=== PATIENT | female | born 1975 | race Caucasian/White ===

== ENCOUNTER 2021-07-03 08:26 | Emergency (ER) | payer MEDICARE, MEDICAID, SELFPAY ==
[2021-07-03 08:30] VITALS: BP 127/96; PULSE 79; RESP 16; TEMP 36.4; O2SAT 97
--- NOTE | 2021-07-03 08:49 | ED.GENADULT ---
HPI - General Adult General Chief complaint: Unspecified Stated complaint: SWOLLEN LYMPH NODES Time Seen by Provider: 07/03/21 08:49 Source: patient Mode of arrival: ambulatory Limitations: no limitations History of Present Illness HPI narrative: 46-year-old woman with a history of seasonal allergies comes in today complaining of facial pressure, fever, chills, facial swelling and swollen lymph nodes. She denies shortness of breath, vomiting, difficulty swallowing, difficulty breathing, and throat swelling. She has had similar symptoms in the past which were responsive to Augmentin (which she tolerated without difficulty). She states that her facial swelling became worse after she sneezed really hard 2 days ago. Onset (ago): day(s) (3) Location: head, face and neck Radiation: non-radiation Severity: moderate Quality: aching Pain Consistency: constant Relieving factors: none Exacerbating factors: none Associated symptoms: cough and fever/chills Treatments prior to arrival: other ( Antihistamines) Related Data Home Medications Medication Instructions Recorded Confirmed duloxetine 60 mg PO BID 07/03/21 07/03/21 liothyronine 25 mcg PO DAILY 07/03/21 07/03/21 lisinopril 10 mg PO DAILY 07/03/21 07/03/21 metformin 500 mg PO DAILY 07/03/21 07/03/21 norethindrone acetate 5 mg PO DAILY 07/03/21 07/03/21 pregabalin 150 mg PO BID 07/03/21 07/03/21 sertraline 50 mg PO HS 07/03/21 07/03/21 trazodone 150 mg PO HS 07/03/21 07/03/21 Allergies Allergy/AdvReac Type Severity Reaction Status Date / Time ceftriaxone Allergy Severe Anaphylactic Verified 05/16/19 19:24 Shock Cephalosporins Allergy Mild Hives / Unverified 12/22/08 15:24 Red Face Penicillins Allergy Mild Muscle Unverified 12/22/08 15:24 Spasms Bee Venom Allergy Intermediate Dyspnea / Uncoded 05/16/19 19:24 SOB Sulfa Drugs Allergy Intermediate Other Uncoded 05/16/19 19:24 Wasp Venom Allergy Intermediate Dyspnea / Uncoded 05/16/19 19:24 SOB Review of Systems Review of Systems: All systems reviewed & are unremarkable except as noted in HPI and below Constitutional: Constitutional: Reports fatigue and Reports fever(s) Eyes: Eyes: Denies change in vision, Denies diplopia and Denies photophobia ENT: Denies otalgia, Reports facial pain, Denies lip swelling, Reports nasal congestion, Denies nasal discharge, Reports sinus pressure, Denies sore throat, Denies throat swelling and Denies tongue swelling Cardiovascular: Cardiovascular: Denies chest pain and Denies syncope Respiratory: Respiratory: Denies cough, Denies dyspnea, Denies stridor and Denies wheezing Gastrointestinal: Gastrointestinal: Denies abdominal pain, Denies diarrhea, Denies nausea and Denies vomiting Musculoskeletal: Musculoskeletal: Denies arthralgias, Denies joint swelling and Reports neck pain Integumentary/Breasts: Skin/Breast: Denies pruritus, Denies erythema and Denies rash Neurologic: Denies vertigo, Denies dizziness and Denies syncope Hematologic/Lymphatic: Hematologic/Lymphatic: Denies easy bleeding and Denies easy bruising Allergic/Immunologic: Allergic/Immunologic: Denies urticaria, Denies lip swelling and Denies throat swelling [facility] Past Medical History Medical History (Updated 07/03/21 @ 09:12 by Bjorn Gomez MD) Hypertension Hypothyroidism Type 2 diabetes mellitus Surgical History Surgical History (Updated 07/03/21 @ 09:06 by Bjorn Gomez MD) H/O knee surgery History of back surgery S/P gastric sleeve procedure Social History Social History (Updated 07/03/21 @ 09:06 by Bjorn Gomez MD) Smoking status: Current every day smoker Living arrangements: with family Exam Const: General: cooperative, alert, awake, Physically active and other ( mild acute distress.) Nutritional Appearance: overweight Orientation/consciousness: patient oriented x3 Limitations: no limitations HENMT: Head: normal to inspection, normocephalic and a
[2021-07-03 09:55] LABS: SARS-CoV-2 Ag Negative (Negative)
[2021-07-03 09:58] VITALS: BP 133/85; PULSE 75; RESP 16; O2SAT 97
== END 2021-07-03 10:05 | disposition home or self-care (01) ==
PROVIDERS: Emergency Provider Emergency Medicine; PCP Nurse Practitioner
DX: J32.9 Chronic sinusitis, unspecified (principal); Z20.822 Contact with and (suspected) exposure to COVID-19
CPT/HCPCS: 87426; 99283; C9803

== ENCOUNTER 2021-09-12 12:41 | Emergency (ER) | payer MEDICARE, MEDICAID, SELFPAY ==
[2021-09-12 13:10] VITALS: BP 134/88; PULSE 82; RESP 18; TEMP 36.2; O2SAT 98
--- NOTE | 2021-09-12 13:44 | ED.URI ---
HPI - URI/Sore Throat General Chief Complaint: Upper Respiratory Infection Stated Complaint: Sinus/headche congestion/breathing labored Source: patient, family and RN notes reviewed Mode of arrival: ambulatory Limitations: no limitations History of Present Illness MD elicited complaint: cough, sore throat, rhinorrhea and nasal congestion Onset (ago): day(s) (4) Consistency: intermittent and progressively worsening Severity: moderate Description of mucous: clear Able to tolerate fluids by mouth: Yes Exacerbating factors: nothing Relieving factors: nothing Context: sick contacts Associated symptoms: denies other symptoms Treatments prior to arrival: none Related Data Home Medications Medication Instructions Recorded Confirmed duloxetine 60 mg PO BID 07/03/21 09/12/21 liothyronine 25 mcg PO DAILY 07/03/21 09/12/21 norethindrone acetate 5 mg PO DAILY 07/03/21 09/12/21 pregabalin 150 mg PO BID 07/03/21 09/12/21 sertraline 50 mg PO HS 07/03/21 09/12/21 trazodone 150 mg PO HS 07/03/21 09/12/21 Allergies Allergy/AdvReac Type Severity Reaction Status Date / Time ceftriaxone Allergy Severe Anaphylactic Verified 09/12/21 13:18 Shock Cephalosporins Allergy Mild Hives / Verified 09/12/21 13:18 Red Face Penicillins Allergy Mild Muscle Verified 09/12/21 13:18 Spasms Bee Venom Allergy Intermediate Dyspnea / Uncoded 05/16/19 19:24 SOB Sulfa Drugs Allergy Intermediate Other Uncoded 05/16/19 19:24 Wasp Venom Allergy Intermediate Dyspnea / Uncoded 05/16/19 19:24 SOB Review of Systems Review of Systems: All systems reviewed & are unremarkable except as noted in HPI and below Constitutional: Constitutional: Denies chills and Denies fever(s) Cardiovascular: Cardiovascular: Denies chest pain Respiratory: Respiratory: Denies dyspnea Gastrointestinal: Gastrointestinal: Denies diarrhea, Denies nausea and Denies vomiting PMFSH Past Medical History Medical History Hypertension Hypothyroidism Type 2 diabetes mellitus Surgical History Surgical History H/O knee surgery History of back surgery S/P gastric sleeve procedure Social History Social History Smoking status: Current every day smoker Exam Const: General: healthy appearing, no acute distress and alert Nutritional Appearance: well nourished and obese morbidly obese Orientation/consciousness: patient oriented x3 HENMT: Head: normal to inspection Ears: external ears normal Eyes: Conjunctivae: conjunctivae normal Pupils: Equal, round and reactive pupils present EOM: EOMs intact bilaterally Neck: Neck: normal visual inspection and no lymphadenopathy Resp: Effort & Inspection: normal respiratory effort Auscultation: clear to auscultation bilaterally Cardio: Rate: regular rate Rhythm: regular rhythm GI: GI Palp: Yes Soft to palpation and No Tenderness to palpation present (GI) Auscultation: normal bowel sounds Back/Spine/Pelvis: Cervical Spine: cervical ROM normal Thoracic/Lumbar Spine: thoraco-lumbar ROM normal Skin: General skin exam: normal color Rashes: no rashes Neuro: General: patient oriented x3, moves all extremities, no meningeal signs, no focal motor deficits and CN's II-XI intact bilaterally Speech: normal speech Gait exam (Neuro): Normal gait present Extrem: General: normal to inspection and no clubbing, cyanosis or edema Psych: Appearance: grossly normal and well kempt Mental Status: mental status grossly normal Affect: normal affect Attitude: cooperative Thought content: Yes Normal thought content present Course Vital Signs Vital signs: Vital Signs Temperature 36.2 C L 09/12/21 13:10 Pulse Rate 82 09/12/21 13:10 Respiratory Rate 18 09/12/21 13:10 Blood Pressure 134/88 09/12/21 13:10 Pulse Oximetry 98 09/12/21 13:10 Temperature 3
[2021-09-12 14:07] LABS: Influenza A QL RT-PCR Negative (Negative); Influenza B QL RT-PCR Negative (Negative); SARS-CoV-2 RNA PCR Negative (Negative)
[2021-09-12 14:50] VITALS: BP 112/92; PULSE 101; RESP 16; O2SAT 95
== END 2021-09-12 14:50 | disposition home or self-care (01) ==
PROVIDERS: Emergency Provider Emergency Medicine; PCP Nurse Practitioner
DX: J00 Acute nasopharyngitis [common cold] (principal); Z20.822 Contact with and (suspected) exposure to COVID-19; I10 Essential (primary) hypertension; E03.9 Hypothyroidism, unspecified; E11.9 Type 2 diabetes mellitus without complications; F17.200 Nicotine dependence, unspecified, uncomplicated
CPT/HCPCS: 87502; 99282; 99283; C9803; U0003; U0005

== ENCOUNTER 2021-10-09 08:26 | Outpatient (CLI) | payer MEDICARE, MEDICAID, SELFPAY ==
[2021-10-09 08:51] LABS: Basophils Absolute Auto 0.08 K/mm3 (0.00-0.10); Basophils Percent Auto 0.6 % (0.0-1.0); Eosinophils Absolute Auto 0.26 K/mm3 (0.02-0.50); Hematocrit 44.5 % (35.0-49.0); Hemoglobin 14.6 g/dL (12.0-15.0); Immature Granulocyte Absolute 0.05 K/mm3 (0.00-0.00); Immature Granulocyte Percent A 0.4 % (0.0-0.0); Lymphocytes Absolute Auto 2.59 K/mm3 (1.10-4.50); Mean Corpuscular HGB Conc 32.8 g/dL (32.0-36.0); Mean Corpuscular Hemoglobin 28.1 pg (27.0-31.0); Mean Corpuscular Volume 85.7 fL (78.0-102.0); Mean Platelet Volume 10.1 fl (9.2-11.8); Monocytes Absolute Auto 0.59 K/mm3 (0.10-0.90); Monocytes Percent Auto 4.6 % (2.0-11.0); Neutrophils Absolute Auto 9.4 K/mm3 (1.7-7.2); Neutrophils Percent Auto 72.4 % (50.0-70.0); Platelet Count Result 394 K/mm3 (150-420); Red Blood Count 5.19 M/mm3 (4.20-5.40); Red Cell Distribution Width 14.4 % (11.6-14.4); White Blood Count 12.9 K/mm3 (4.8-10.8)
[2021-10-09 10:24] LABS: Erythrocyte Sedimentation Rate 30 mm/hr (0-15)
[2021-10-09 10:52] LABS: Ferritin 175 ng/mL (8-252); Iron 86 ug/dL (50-170); Percent Iron Saturation 32 % (12-57); Vitamin B12 497 pg/mL (193-986)
== END 2021-10-09 08:27 | disposition home or self-care (01) ==
LOC: CHSLAB 08:34
PROVIDERS: PCP Nurse Practitioner; Visit Provider Internal Medicine
DX: D47.3 Essential (hemorrhagic) thrombocythemia (principal); D72.823 Leukemoid reaction
CPT/HCPCS: 36415; 82607; 82728; 83540; 83550; 85025; 85652

== ENCOUNTER 2022-12-12 10:26 | Emergency (ER) | payer MEDICARE, MEDICAID, SELFPAY ==
--- NOTE | ~2022-12-12 | XR_ITS ---
EXAMINATION: [id number] DATE: 12/12/2022 11:01 INDICATION: Right anterior rib pain. TECHNIQUE: A frontal view of the chest and 2 views on 3 radiographs of the right ribs were obtained. COMPARISON: CT abdomen and pelvis 09/15/19 FINDINGS: The chest demonstrates clear lungs without pneumonia, pleural effusion, or pneumothorax. Th e heart size is normal. There are changes of anterior and posterior fusion procedures in lumbar spine . There is a fracture of right seventh rib. IMPRESSION: 1. Fracture of right seventh rib. Reviewed, dictated and finalized at location A.
[2022-12-12 10:36] VITALS: BP 138/89; PULSE 79; RESP 18; TEMP 36.8; O2SAT 100
--- NOTE | 2022-12-12 10:37 | ED.CHESTPAIN ---
HPI - Chest Pain General Chief Complaint: Unspecified Stated Complaint: right rib pain Time Seen by Provider: 12/12/22 10:36 Source: patient Mode of arrival: ambulatory Limitations: no limitations History of Present Illness HPI narrative: 47-year-old female with a history of hypertension, prediabetic, negative cardiac catheterization 2 months ago,, hypothyroidism, status post gastric sleeve, status post back surgery, status post knee surgery was leaning against a cooler at [employer] 2 days ago and heard crepitus in the right lower chest wall. Subsequently she has been having right lower chest wall pain on deep breathing. No fever. No cough. No sputum production. MD complaint: chest pain Onset (ago): day(s) ( Started 2 days ago) Timing of current episode: constant Prior episodes: No Pain location: other ( right lateral chest wall) Pain radiation: none Severity: moderate Quality: sharp Relieving factors: nothing Exacerbating factors: inspiration Treatment prior to arrival: none Risk Factors Coronary artery disease risk factors: diabetes and smoking history Thoracic aortic dissection risk factors: none Pulmonary embolism risk factors: oral contracepetive use Related Data On Oral Contraceptives: Yes Home Medications Medication Instructions Recorded Confirmed duloxetine 60 mg capsule,delayed 60 mg PO BID 07/03/21 09/12/21 release liothyronine 25 mcg tablet 25 mcg PO DAILY 07/03/21 09/12/21 norethindrone acetate 5 mg tablet 5 mg PO DAILY 07/03/21 09/12/21 pregabalin 150 mg capsule 150 mg PO BID 07/03/21 09/12/21 sertraline 50 mg tablet 50 mg PO HS 07/03/21 09/12/21 trazodone 150 mg tablet 150 mg PO HS 07/03/21 09/12/21 Allergies Allergy/AdvReac Type Severity Reaction Status Date / Time ceftriaxone Allergy Severe Anaphylactic Verified 12/12/22 10:34 Shock Cephalosporins Allergy Mild Hives / Verified 12/12/22 10:34 Red Face Penicillins Allergy Mild Muscle Verified 12/12/22 10:34 Spasms Bee Venom Allergy Intermediate Dyspnea / Uncoded 12/12/22 10:34 SOB Sulfa Drugs Allergy Intermediate Other Uncoded 12/12/22 10:34 Wasp Venom Allergy Intermediate Dyspnea / Uncoded 12/12/22 10:34 SOB Review of Systems Review of Systems: All systems reviewed & are unremarkable except as noted in HPI and below Constitutional: Constitutional: Reports as per HPI and Reports no additional constitutional complaints Eyes: Eyes: Reports as per HPI and Reports no additional eye complaints ENT: Reports system reviewed and no additional complaints, except as documented and Reports as per HPI Cardiovascular: Cardiovascular: Reports as per HPI and Reports no additional cardiovascular complaints Respiratory: Respiratory: Reports as per HPI and Reports no additional respiratory complaints Comments: right lateral chest wall pain Gastrointestinal: Gastrointestinal: Reports as per HPI and Reports no additional gastrointestinal complaints Genitourinary: Genitourinary: Reports no additional female genitourinary complaints and Reports as per HPI Musculoskeletal: Musculoskeletal: Reports no additional musculoskeletal complaints and Reports as per HPI Integumentary/Breasts: Skin/Breast: Reports system reviewed and no additional complaints, except as docu and Reports as per HPI Neurologic: Reports system reviewed and no additional complaints, except as documented and Reports as per HPI Psychiatric: Psychiatric: Reports no additional psychiatric complaints and Reports as per HPI Endocrine: Endocrine: Reports no additional endocrine complaints and Reports as per HPI Hematologic/Lymphatic: Hematologic/Lymphatic: Reports no additional hematologic/lymphatic complaints and Reports as per HPI Allergic/Immunologic: Allergic/Immunologic: Reports no additional allergic/immunologic complaints and Reports as per HPI [facility] Past Medical History Medical History (Updated 12/12/22 @ 11:44 by Mehdi Mendoza MD) Hypertension Hyp
[2022-12-12 11:58] VITALS: BP 129/94; PULSE 65; RESP 18; O2SAT 99
--- NOTE | 2022-12-12 11:59 | PC.NURSE ---
Having difficulty printing discharge packet. Pt aware of delay and verbalized understanding. Pt resting comfortably on bed, talking on phone.
== END 2022-12-12 12:24 | disposition home or self-care (01) ==
PROVIDERS: Emergency Provider Internal Medicine Critical Care Medicine; PCP Family Medicine
DX: S22.31XA Fracture of one rib, right side, initial encounter for closed fracture (principal); I10 Essential (primary) hypertension; E03.9 Hypothyroidism, unspecified; F17.200 Nicotine dependence, unspecified, uncomplicated; X58.XXXA Exposure to other specified factors, initial encounter
CPT/HCPCS: 71101; 99283

== ENCOUNTER 2023-01-02 08:07 | Emergency (ER) | payer MEDICARE, MEDICAID, SELFPAY ==
--- NOTE | ~2023-01-02 | XR_ITS ---
EXAMINATION: [id number] INDICATION: Right chest pain TECHNIQUE: A frontal view of the chest and 3 views of the right ribs were obtained. COMPARISON: 12/12/2022 FINDINGS: The lungs are free of acute opacities. No pleural effusion or pneumothorax. The cardiomedia stinal silhouette is normal. A healing fracture of the right seventh rib is noted. No new rib fractur e is identified. IMPRESSION: 1. No acute cardiopulmonary abnormality. 2. Healing right seventh rib fracture. Reviewed, dictated and finalized at location B.
[2023-01-02 08:07] VITALS: BP 125/82; PULSE 86; RESP 16; TEMP 36.5; O2SAT 96
--- NOTE | 2023-01-02 08:10 | ED.CHESTPAIN ---
HPI - Chest Pain General Chief Complaint: Chest Pain Stated Complaint: rib pain Time Seen by Provider: 01/02/23 08:09 Source: patient Mode of arrival: ambulatory Limitations: no limitations History of Present Illness HPI narrative: 47-year-old female, smoker with a history of hypertension, prediabetes, hypothyroidism, right 7th rib fracture for which she was seen on 12/12/2022 presents to the ER with -- recurrence of right lower chest wall pain after she leaned over the research [employer] 4 days ago. Pain is present on palpation. It increases with deep breathing. No fever or chills. MD complaint: chest pain Pertinent past history: coronary artery disease ( Negative cardiac catheterization 3 months ago) Onset (ago): day(s) ( started 4 days ago) Timing of current episode: episodic Onset: during exertion Pain location: right chest and lateral Pain radiation: none Severity: severe Quality: sharp Relieving factors: nothing Exacerbating factors: nothing Treatment prior to arrival: none Risk Factors Coronary artery disease risk factors: smoking history and hypertension Thoracic aortic dissection risk factors: longstanding hypertension Related Data Home Medications Medication Instructions Recorded Confirmed duloxetine 60 mg capsule,delayed 60 mg PO BID 07/03/21 01/02/23 release liothyronine 25 mcg tablet 25 mcg PO DAILY 07/03/21 01/02/23 norethindrone acetate 5 mg tablet 5 mg PO DAILY 07/03/21 01/02/23 pregabalin 150 mg capsule 150 mg PO BID 07/03/21 01/02/23 sertraline 50 mg tablet 50 mg PO HS 07/03/21 01/02/23 trazodone 150 mg tablet 150 mg PO HS 07/03/21 01/02/23 potassium chloride 10 mEq 10 meq PO DAILY 01/02/23 01/02/23 tablet,extended release Allergies Allergy/AdvReac Type Severity Reaction Status Date / Time ceftriaxone Allergy Severe Anaphylactic Verified 01/02/23 08:10 Shock Cephalosporins Allergy Mild Hives / Verified 01/02/23 08:10 Red Face Penicillins Allergy Mild Muscle Verified 01/02/23 08:10 Spasms Bee Venom Allergy Intermediate Dyspnea / Uncoded 12/12/22 10:34 SOB Sulfa Drugs Allergy Intermediate Other Uncoded 12/12/22 10:34 Wasp Venom Allergy Intermediate Dyspnea / Uncoded 12/12/22 10:34 SOB Review of Systems Review of Systems: All systems reviewed & are unremarkable except as noted in HPI and below Constitutional: Constitutional: Reports as per HPI and Reports no additional constitutional complaints Eyes: Eyes: Reports as per HPI and Reports no additional eye complaints ENT: Reports system reviewed and no additional complaints, except as documented and Reports as per HPI Cardiovascular: Cardiovascular: Reports as per HPI and Reports no additional cardiovascular complaints Respiratory: Respiratory: Reports as per HPI ( right lateral chest wall pain made worse by deep breathing) Gastrointestinal: Gastrointestinal: Reports as per HPI and Reports no additional gastrointestinal complaints Genitourinary: Genitourinary: Reports no additional female genitourinary complaints and Reports as per HPI Musculoskeletal: Musculoskeletal: Reports no additional musculoskeletal complaints and Reports as per HPI Integumentary/Breasts: Skin/Breast: Reports system reviewed and no additional complaints, except as docu and Reports as per HPI Neurologic: Reports system reviewed and no additional complaints, except as documented and Reports as per HPI Psychiatric: Psychiatric: Reports no additional psychiatric complaints and Reports as per HPI Endocrine: Endocrine: Reports no additional endocrine complaints and Reports as per HPI Hematologic/Lymphatic: Hematologic/Lymphatic: Reports no additional hematologic/lymphatic complaints and Reports as per HPI Allergic/Immunologic: Allergic/Immunologic: Reports no additional allergic/immunologic complaints and Reports as per HPI [facility] Past Medical History Medical History (Updated 01/02/23 @ 08:30 by Mehdi Mendoza MD) Hypertension Hypothyroidism
[2023-01-02] MEDS: KETOROLAC 30 MG/ML VIAL (*BKC) IM (08:30)
== END 2023-01-02 08:55 | disposition home or self-care (01) ==
LOC: CHSED 08:39
PROVIDERS: Emergency Provider Internal Medicine Critical Care Medicine; PCP Family Medicine
DX: R07.89 Other chest pain (principal); S22.31XD Fracture of one rib, right side, subsequent encounter for fracture with routine healing; I25.10 Atherosclerotic heart disease of native coronary artery without angina pectoris; I10 Essential (primary) hypertension; E03.9 Hypothyroidism, unspecified; F17.200 Nicotine dependence, unspecified, uncomplicated; X58.XXXD Exposure to other specified factors, subsequent encounter
CPT/HCPCS: 71101; 96372; 99283; J1885

== ENCOUNTER 2025-05-19 07:00 | Outpatient (RCR) | payer MEDICARE, SELFPAY ==
--- NOTE | 2025-05-19 09:05 | OPREHPOC ---
Outpatient Therapy Plan of Care This is a Multidisciplinary Plan of Care that may contain components documented by all disciplines (PT, OT, and ST.) PT Problem 1 PT Problem #1 Knowledge Deficit PT Goal 1 Goal / Goal Update Independent and compliant with HEP. Target Visit 2 PT Problem 2 PT Problem #2 Pain PT Goal 1 Goal / Goal Update Pt to report no more than 3/10 pain in the L knee at worst. Target Visit 12 PT Problem 3 PT Problem #3 Impaired Strength PT Goal 1 Goal / Goal Update Pt to improve gross bilat LE strength to 5/5. Target Visit 12 PT Problem 4 PT Problem #4 Impaired Functional Mobility PT Goal 1 Goal / Goal Update Pt to improve 6MWT distance to 1200 ft without rest or knee pain. Pt to report 20% reduction in perceived disability on LEFS. Pt to report being able to return to all daily functional activities at home and in the community . Target Visit 12 PT Problem 5 PT Problem #5 Impaired Range of Motion PT Goal 1 Goal / Goal Update Pt to improve active L knee flexion to 135 deg. Target Visit 12
--- NOTE | 2025-05-19 09:05 | PTOPEVAL1 ---
Assessment and note entered by Shasta Mabry, PT Evaluation Information Assessment Status Evaluation ICD-10 Condition Codes (PT) Aftercare following joint replacement surgery Z47. 1 Other ICD-10 Condition Codes ( Z96.652 PT) Onset 04/20/2025 Subjective Information Pt reports she had her knee replaced on 04/20/2025 and she feels like she has a whole new knee. She reports they gave her exercises which she has been doing and they also gave her a CPM machine but she hasn't used it, states the doctor said as long as she does her exercises she doesn't have to use it. She reports the first week after surgery her knee hurt a lot, but she used her ice machine frequently to help reduce pain. She reports she has a step to get into her house which she can ascend/descend without difficulty and that she was able to mow her lawn on the riding mower over the weekend. She initially used a walker for the first week after surgery but hasn't used it since. She reports little to no pain at rest but that her pain increases up to 5/10 when she sits, stands, or walks for too long. She reports her knee does swell when she's on her feet a lot but she feels like it's been getting less swollen. Reported Pain Level Pain Score 0: Self Report Assessment PT Clinical Summary Mrs. Harvey is a 50 yo female presenting for skilled PT evaluation s/p L TKA on 04/20/2025. She presents with mild deficits in lower extremity strength, moderate limitation in L knee flexion AROM, pain with prolonged positioning and ambulation, stiffness and edema. These deficits interfere with pt's ability to sit and stand for prolonged periods, squat to lift objects, and perform her usual hobbies. Skilled PT intervention is indicated to address these deficits to improve pt's ability to perform daily functional tasks at home and in her community. Plan of Care Interventions Electrical Stimulation,Gait Training,Hot Pack/Cold Pack,Manual Therapy,Neuro Re-education,Patient/ Caregiver Education,Therapeutic Activities, Therapeutic Exercise,Self-Care/Home Management PT Services Indicated Yes Treatment Frequency and 2x/week for 12 visits Duration These treatments will address the objective and functional deficits as defined above. The patient will be advanced safely and appropriately in order for the patient to progress towards his/her prior level of function. Additional exercises will be introduced and as well as a comprehensive home exercise program upon discharge, if needed, ?to ensure carryover of functional gains achieved in the clinic. This treatment plan has been reviewed and agreement upon by the patient.
--- NOTE | 2025-05-27 07:17 | PCPTNOTE ---
Cancelled session. Reports she has strep throat.
--- NOTE | 2025-06-18 11:25 | PCPTNOTE ---
No call, no show.
== END 2025-08-17 23:59 | disposition home or self-care (01) ==
LOC: CHSPT 07:00
PROVIDERS: Visit Provider Orthopaedic Surgery
DX: Z47.1 Aftercare following joint replacement surgery (principal); Z96.652 Presence of left artificial knee joint
CPT/HCPCS: 97016; 97110; 97150; 97161; 97530

== ENCOUNTER 2025-05-27 10:32 | Emergency (ER) | payer MEDICARE, SELFPAY ==
[2025-05-27 10:42] VITALS: BP 136/83; PULSE 92; RESP 16; TEMP 36.8; O2SAT 98
[2025-05-27 11:07] LABS: Strep Group A RT-PCR DETECTED (Negative)
--- OUTSIDE RECORDS SUMMARY | 2025-05-27 11:09 | XMS_ITS | Clinical Summary ---
Author Organization [facility] Address [address] [place] [address] Care Team Providers Care Ward Attendant Name Role Phone Fadi Plaza MD Primary Care Provider [phone] Benjy Hernandez MD Unavailable [phone] Earl Guerra OT Unavailable Unavailable Cayden Chua MD Unavailable [phone] Allergies Active Allergy Reactions Criticality Noted Date Comments Venom-Honey Bee Swelling Medium 11/09/2019 Penicillins Muscle pain Medium 09/12/2021 Ceftriaxone Hives Medium 11/09/2019 Sulfa (Sulfonamide Antibiotics) Other (See comments) High 06/04/2017 Messes up my kidneys Wasp Venom Swelling Medium 11/09/2019 Medications albuterol HFA (PROVENTIL HFA,VENTOLIN HFA,PROAIR HFA) 90 mcg/actuation inhaler Inhale 3-4 puffs 4 (four) times a day Active docusate sodium (COLACE) 100 mg capsule Take 1 capsule (100 mg total) by mouth 2 (two) times a day 020 Active loratadine-pseudo ephedrine (CLARITIN-D 24-hour) 10-240 mg per 24 hr tablet Take 1 tablet by mouth daily as needed for allergies 30 tablet 3 022 Active fluticasone propionate (FLONASE) 50 mcg/actuation nasal spray Administer 2 sprays into each nostril 2 (two) times a day 1 each 1 023 Active ARIPiprazole (ABILIFY) 5 mg tablet Take 1 tablet (5 mg total) by mouth daily 90 tablet 1 024 Active potassium chloride ER 20 mEq CR tabletIndications :Hypokalemia Take 1 tablet (20 mEq total) by mouth 3 (three) times a day 270 tablet 1 024 Active traZODone (DESYREL) 150 mg tablet Take 1 tablet (150 mg total) by mouth nightly 90 tablet 3 024 Active metFORMIN XR (GLUCOPHAGE XR) 500 mg 24 hr tabletIndications :Prediabetes Take 1 tablet (500 mg total) by mouth daily with breakfast 90 tablet 3 025 2025 Active liothyronine (CYTOMEL) 25 mcg tablet Take 1 tablet (25 mcg total) by mouth daily 90 tablet 3 025 2025 Active carvediloL (COREG) 6.25 mg tablet TAKE 1 TABLET(6.25 MG) BY MOUTH TWICE DAILY WITH MEALS 180 tablet 3 025 Active famotidine (PEPCID) 20 mg tabletIndications :Dyspepsia Take 1 tablet (20 mg total) by mouth 2 (two) times a day 60 tablet 11 025 2025 Active sertraline (ZOLOFT) 50 mg tablet Take 1 tablet (50 mg total) by mouth daily 90 tablet 3 025 2025 Active furosemide (LASIX) 20 mg tabletIndications :Chronic systolic congestive heart failure, NYHA class 1 (HCC) Take 1 tablet (20 mg total) by mouth every other day 45 tablet 1 025 Active norethindrone (Gallifrey) 5 mg tablet TAKE 1 TABLET(5 MG) BY MOUTH DAILY 90 tablet 025 Active ascorbic acid (VITAMIN C) 500 mg tablet,chewableIn dications:Vitamin deficiency prevention Take 1 tablet/chew tab (500 mg total) by mouth 2 (two) times a day 60 tablet/vane w tab 025 Active cholecalciferol (VITAMIN D-3) 2000 unit capsule Take 1 capsule (2,000 Units total) by mouth daily 30 tablet 025 Active ondansetron ODT (ZOFRAN-ODT) 4 mg disintegrating tabletIndications :Prevention of Post-Operative Nausea and Vomiting,nausea and vomiting Take 1 tablet (4 mg total) by mouth every 6 (six) hours as needed for nausea or vomiting 20 tablet 1 Active senna-docusate (PERICOLACE) 8.6-50 mgIndications:con stipation Take 2 tablets by mouth 2 (two) times a day as needed for constipation 60 tablet 1 Active apixaban (ELIQUIS) 2.5 mg tabletIndications :deep venous thrombosis Take 1 tablet (2.5 mg total) by mouth 2 (two) times a day for 59 doses [address] (CYMBALTA) 60 mg capsule TAKE 1 CAPSULE(60 MG) BY MOUTH TWICE DAILY 180 capsule 3 Active celecoxib (CeleBREX) 100 mg capsuleIndication s:Pain Take 1 capsule (100 mg total) by mouth 2 (two) times a day 180 capsule 025 2024 Active HYDROcodone-aceta minophen (NORCO) 5-325 mg per tabletIndications :Pain Take 1 tablet by mouth every 6 (six) hours as needed for pain 28 tablet Active Narcan 4 mg/actuation spray,non-aerosol Call 911. Administer a single spray in one nostril. Repeat every 3 minutes as needed if no or minimal response. 0 Active pregabalin (LYRICA) 150 mg capsule TAKE 1 CAPSULE(150 MG) BY MOUTH TWICE DAILY 60 capsule [address] (CYMBALTA) 60 mg capsule Take 1 capsule (60 mg total) by mouth 2 (two) times a day 180 capsule 3 024 2024 Discontinued pregabalin (LYRICA) 150 mg capsule Take 1 capsule (150 mg total) by mouth 2 (two) times a day 60 capsule 2 025 2024 Discontinued celecoxib (CeleBREX) 200 mg capsuleIndication s:Pain Take 1 capsule (200 mg total) by mouth 2 (two) times a day for 14 days 28 capsule 025 2024 Discontinued(R eorder) ferrous sulfate 325 mg (65 mg of elemental iron) tabletIndications :Iron Deficiency Anemia,Anemia prevention Take 1 tablet (325 mg total) by mouth daily with breakfast 30 tablet 025 2024 HYDROcodone-aceta minophen (NORCO) 5-325 mg per tabletIndications :Pain Take 1-2 tablets by mouth every 4 (four) hours as needed for pain 42 tablet 025 2024 Discontinued(R eorder) HYDROcodone-aceta minophen (NORCO) 5-325 mg per tabletIndications :Pain Take 1-2 tablets by mouth every 4 (four) hours as needed for pain 42 tablet 025 2024 Discontinued(R eorder) Active Problems Problem Noted Date Diagnosed Date Chronic left shoulder pain 09/21/2024 Chronic systolic congestive heart failure, NYHA class 1 12/24/2023 Prediabetes 09/17/2023 Assessment & Plan (07/12/2024 6:56 PM CHIEF PETROLEUM ENGINEER): Counseled on diet and exercise Start oral metformin to help insulin resistance Assessment & Plan (09/17/2023 2:53 PM CHIEF PETROLEUM ENGINEER): Last A1c 6.1% Counseled on diet and exercise Recheck hemoglobin A1c Hyponatremia 07/26/2023 Metabolic alkalosis 07/26/2023 Morbid (severe) obesity due to excess calories 0 03/21/2023 Assessment & Plan (12/24/2023 1:23 PM CDT): BMI Follow-up includes: nutrition counseling, exercise counseling, and education provided. Cyst of spleen 02/28/2023 Hospital discharge follow-up 10/20/2022 Assessment & Plan (08/12/2023 2:37 PM CHIEF PETROLEUM ENGINEER): I have reviewed the hospital record, medications, and relevant testing from Gloria Langley's recent admission. Complications and discharge plan have been noted, reviewed. Post-discharge testing has been ordered. Assessment & Plan (10/20/2022 1:13 PM CHIEF PETROLEUM ENGINEER): I have reviewed the hospital record, medications, and relevant testing from Gloria Langley's recent admission. Complications and discharge plan have been noted, reviewed. Post-discharge testing has been ordered. Rechecking potassium today Continuing potassium supplementation at 20 mEq daily for now BP is controlled Some evidence of heart failure on echocardiogram noted Resuming furosemide at every other day dosing Dry eye syndrome of bilateral lacrimal glands Hypokalemia 10/04/2022 Assessment & Plan (07/12/2024 6:56 PM CHIEF PETROLEUM ENGINEER): Chronic, not at goal Adjusted potassium supplementation Recheck potassium levels Assessment & Plan (09/17/2023 2:53 PM CHIEF PETROLEUM ENGINEER): Patient currently on potassium supplements Recheck potassium level today Also include renin and aldosterone Assessment & Plan (11/13/2022 12:11 PM CHIEF PETROLEUM ENGINEER): Rechecking level Continues daily K supplement Syncope 10/03/2022 Assessment & Plan (10/03/2022 10:42 AM CHIEF PETROLEUM ENGINEER): Getting echocardiogram Will hold furosemide for now, BP is still quite soft. Orthostatic hypotension not present, at least Move slowly when changing positions for now Monitor swelling, daily weights, and BP until follow up Medicare annual wellness visit, initial 06/04/20 Assessment & Plan (06/04/2022 9:03 AM CDT): A(n) initial Medicare Annual Wellness Visit has been performed today. Gloria Langley is not up to date on screening tests. She is in need of Diabetic eye exam, Diabetic foot exam, Breast cancer screening, Diabetic kidney disease screening, Cholesterol screening and Cervical cancer screening- ordered. She is not up to date on needed preventative vaccinations; She is in need of Influenza and Covid-19 (booster). Influenza vaccination given today Leukemoid reaction 06/04/2021 Thrombocytosis 06/04/2021 Class 2 severe obesity due t o excess calories with serious comorbidity and body mass index (BMI) of 39.0 to 39.9 in adult 04/27/2021 Assessment & Plan (09/21/2024 9:34 AM CHIEF PETROLEUM ENGINEER): BMI Follow-up includes: nutrition counseling, exercise counseling, and education provided. Assessment & Plan (11/13/2022 12:12 PM CHIEF PETROLEUM ENGINEER): Healthy, low carbohydrate lifestyle and exercise for 150min/week recommended Assessment & Plan (08/17/2022 11:20 AM CHIEF PETROLEUM ENGINEER): Healthy, low carbohydrate lifestyle and exercise for 150min/week recommended Assessment & Plan (04/05/2022 8:59 AM CDT): Continue calcium, multivitamin, vitamin-D and B12. Continue exercise as tolerates. The patient likely needs to be on a course of antibiotics for a presumed colitis and should have follow-up with GI the potential colonoscopy to ensure nothing else is the cause of the symptoms. She is in understanding. We will see her back in 1 year or sooner if anything changes. Assessment & Plan (08/24/2021 9:33 AM CHIEF PETROLEUM ENGINEER): Continue small frequent meals. Exercise as tolerates. Follow up with dietitian to continue to check progress. We will see her back in 6 months. She will call us sooner with any questions or concerns. Assessment & Plan (05/25/2021 9:17 AM CDT): Okay for patient to go back to activities unrestricted. Continue small frequent meals liquids from solids and chewing everything well. Continue calcium, vitamin-D and multi vitamin. We will see the patient back at 3 months. She will call sooner if any issues arise. Assessment & Plan (05/09/2021 11:32 AM CDT): Continue to advance diet as laid out in post bariatric diet. Continue calcium, multivitamin and vitamin-D. Continue had Pepcid. Avoid any further heavy lifting and no submerging incisions until next follow-up. We will see her back at 4 weeks from the time of surgery. She will call us sooner with any questions or concerns. Primary hypertension 01/10/2021 Assessment & Plan (11/13/2022 12:12 PM CHIEF PETROLEUM ENGINEER): BP stable in office, no changes today. Assessment & Plan (04/04/2021 8:49 AM CDT): Continue current medical regimen Assessment & Plan (03/07/2021 10:29 AM CDT): Continue current medical regimen with lisinopril and hydrochlorothiazide Assessment & Plan (02/07/2021 9:40 AM CDT): Continue current medical regimen Assessment & Plan (01/10/2021 9:21 AM CDT): Continue current medical regimen with lisinopril Type 2 diabetes mellitus wit h diabetic neuropathy, without long-term current use of insulin 12/13/2020 Assessment & Plan (01/10/2021 9:20 AM CDT): Continue current medical regimen Assessment & Plan (12/13/2020 9:03 AM CDT): Continue metformin and Lyrica. Hepatic steatosis 11/15/2020 Assessment & Plan (11/15/2020 11:28 AM CHIEF PETROLEUM ENGINEER): Reason ultrasound demonstrated hepatic steatosis consistent with fatty liver disease, non alcohol induced. Weight loss will be beneficial in helping this to resolve. Dyspepsia 07/27/2020 Assessment & Plan (08/11/2020 3:07 PM CHIEF PETROLEUM ENGINEER): -Better with use of Reglan 10mg TID prior to meals. -Pt should avoid GERD triggering foods such as spicy or acidic/tomato based foods. Assessment & Plan (07/27/2020 4:25 PM CHIEF PETROLEUM ENGINEER): Chronic symptoms of dyspepsia which may be related to delayed gastrointestinal motility. Trial of Reglan before meals. Follow-up in the office after the colonoscopy. Liver lesion 07/27/2020 Assessment & Plan (08/11/2020 3:06 PM CHIEF PETROLEUM ENGINEER): -Pt cannot have MRI done due to rods in her back. Given that this was thought to possibly be area of focal steatosis, we will start with liver US. If this is inconclusive, we can do [address] -Last LFT's were normal. Assessment & Plan (07/27/2020 4:25 PM CHIEF PETROLEUM ENGINEER): Recent CT scan showed 2.9 x 1.6 cm sub capsular liver lesion that will need further evaluation with MRI. History of colonic polyps 07/14/2020 Overview (07/14/2020): Added automatically from request for surgery [id number] Primary osteoarthritis of left knee 04/07/2020 Overview (04/07/2020): Added automatically from request for surgery [id number] Assessment & Plan (11/15/2020 11:20 AM CHIEF PETROLEUM ENGINEER): Continue follow-up with Ortho. ambulatory regimen as much as tolerates Assessment & Plan (10/04/2020 9:07 AM CHIEF PETROLEUM ENGINEER): Will have referral sent to the dietitian to work on a meal plan to help lose weight during the course of her workup for surgery. This should hopefully help some of the osteoarthritis until it can be repaired surgically. S/P lumbar spinal fusion 07/08/2019 Lower back pain 05/15/2019 Lumbar degenerative disc disease 04/02/2019 Lumbar foraminal stenosis 04/02/2019 Fatigue 09/19/2018 Assessment & Plan (12/29/2022 11:58 AM CDT): Stay hydrated; aim for 6-8 8-oz glasses daily Labs pending; I am concerned about potassium, so that is part of the labs ordered today Be careful with position changes, given potential orthostatic hypotension noted on the vitals Abnormal cortisol level 09/19/2018 Assessment & Plan (07/12/2024 6:54 PM CHIEF PETROLEUM ENGINEER): Plan to repeat her serum a.m. cortisol levels Assessment & Plan (09/17/2023 2:53 PM CHIEF PETROLEUM ENGINEER): Sub normal cosyntropin stim test response Plan to repeat cosyntropin stimulation test soon in office and further plans based on it Hypothyroidism Assessment & Plan (09/17/2023 2:53 PM CHIEF PETROLEUM ENGINEER): Chronic, uncontrolled Repeat thyroid function test today and further plans based on it Assessment & Plan (11/13/2022 12:11 PM CHIEF PETROLEUM ENGINEER): Was euthyroid 1-2 months ago when checked but with the fatigue will recheck level. Resolved Problems Problem Noted Date Diagnosed Date Resolved Date Diabetes mellitus 12/13/2020 12/13/2020 Morbid obesity with BMI of 40.0-44.9, adult 08/11/2020 08/24/2021 Assessment & Plan (04/04/2021 8:49 AM CDT): We have discussed hospital stay and postoperative issues. We have again gone over the preoperative diet. No further questions at this time. Surgery set up for mid April. We will see her at that time. Assessment & Plan (03/07/2021 10:30 AM CDT): EGD did not demonstrate H pylori or hiatal hernia. She is now out month 6. We will submit everything to insurance for precertification. We have given her a handout for Education for the preop diet. We will tell her when to start when a surgery date has been given. All questions answered. Assessment & Plan (02/07/2021 9:41 AM CDT): This is the patient's 5th visit. She is set to have upper endoscopy in the next few weeks. We will see her back in March for her 6th visit and then be prepared to submit everything to insurance. She will continue small frequent meals and exercise as tolerates until that time. no further questions at this time. Assessment & Plan (01/10/2021 9:21 AM CDT): The patient is set to see psych this coming week. We have encouraged her reach out to the dietitian to schedule another appointment to further work on meal planning in preparation for surgery. We will set her up for an EGD to rule out hiatal hernia and H pylori in the next few weeks. We will see her back next month. Assessment & Plan (12/13/2020 9:04 AM CDT): We have stressed the importance to avoid eating late night. We have discussed some alternatives with her that she can try. Again smaller frequent meals spread throughout the day avoiding anything after dinner. As the weather is now warmer a walking regimen as much as she tolerates. We will see her back in 1 month period she missed her appointment with psych because of COVID -19. We will try to get her a follow-up appointment. Assessment & Plan (11/15/2020 11:28 AM CHIEF PETROLEUM ENGINEER): Given the COVID -19 diagnosis it is reasonable that she was unable to come to the last follow-up. Also with this just affecting her body overall I am happy with only a 2 lb weight gain during that time. now unfortunately she is having some significant issues with her left knee. Hopefully as she now is recovering from COVID -19 she can be a little bit more active. Assessment & Plan (10/04/2020 9:08 AM CHIEF PETROLEUM ENGINEER): The patient seems motivated would be a good candidate for weight loss surgery. Will have a referral sent to her for psych as well as the dietitian. She has already been seen by GI ends had an upper endoscopy. We will evaluate his images ensure no hiatal hernia that would have to be fixed at the time of surgery. During this time frame she should shoot for a goal calorie intake of around 1500 a day. Small frequent meals. Exercise regimen much as possible with at least cardiovascular exercise 3 times a week. She states she has a Rec under that she goes to and bought a machine for her home. We will see her back in 4 weeks. Greater than 15 minutes was spent in counseling the patient on diet and exercise with regards to her morbid obesity. Colitis 07/14/2020 08/11/2020 Overview (07/14/2020): Added automatically from request for surgery [id number] Assessment & Plan (08/11/2020 3:09 PM CHIEF PETROLEUM ENGINEER): -Colonoscopy did not show any signs of colitis. Assessment & Plan (07/27/2020 4:24 PM CHIEF PETROLEUM ENGINEER): Schedule colonoscopy to better understand her disease and if active colitis that need to be addressed. Encounters Date Type Department Care Team Description 05/26/2025 ACO Clinical Pharmacist [address] [address] Katerina Lemus [facility] 05/21/2025 Telephone [facility] Minimally Invasive Surgery [address] [place] [phone] Nidia Bowie [facility] 05/21/2025 ACO Clinical Pharmacist [address] [address] Katerina Lemus, [facility] 05/21/2025 ACO Outreach [address] [address] Viviana Laboy RN 05/21/2025 ACO Medication Access [address] [address] Lucia Christy CPhT 05/13/2025 Orders Only [facility] [address] [place] [address] [address] [place] [phone] Anjum Burnett PA 05/05/2025 9:30 AM CDT Telemedicine [facility] Medical [facility] [address] [place] [phone] Anjum Burnett PA S/P total knee arthroplasty, left (Primary Dx) 05/05/2025 Orders Only [facility] [address] [place] [phone] Cayden Chua MD S/P total knee arthroplasty, left (Primary Dx) 04/29/2025 Telephone [facility] [address] [place] [address] [address] [place] [phone] Cayden Chua MD 04/27/2025 ACO Clinical Pharmacist [address] [place] [address] Katerina Lemus, [facility] 04/23/2025 ACO Clinical Pharmacist [facility] Care Organization [address] [place] [phone] Katerina Lemus, [facility] 04/22/2025 [facility] Post Discharge Follow up phone call [facility] Surgery Care [address] [place] [address] Susie Pierre 04/20/2025 10:30 AM CDT - 04/20/2025 1:00 PM CDT Surgery [facility] Operating Room [address] [place] [address] Cayden Chua MD Left total knee arthroplasty--Depuy Attune, Velys, NMES, CPM, cooling unit, 1 liter beta rinse and aquamantys (overnight) 04/20/2025 10:16 AM CDT Anesthesia Event [facility] Operating Room [address] [place] [address] Chencho Lara MD Alexander, Jeffrey Michael, DO 04/20/2025 8:04 AM CDT - 04/21/2025 2:31 PM CDT Hospital Encounter [facility] [address] [place] [address] Cayden Chua MD S/P total knee arthroplasty, left (Primary Dx); Primary osteoarthritis of left knee Discharge Disposition: Discharge to home or self care 04/20/2025 Telephone [facility] [address] [place] [phone] Anjum Burnett PA 04/15/2025 Telephone [facility] Primary Care at [address] [phone] Shanda Horan Phone Call 1 ([facility] dm eye exam) 04/07/2025 1:30 PM CDT Office Visit [facility] [address] [place] [phone] Anjum Burnett PA Primary osteoarthritis of left knee (Primary Dx) 03/28/2025 Results Follow-Up [facility] Primary Care at [address] [phone] Fadi Plaza MD Clinical pathology report 03/24/2025 11:25 AM CDT Ancillary Procedure [facility] Imaging at [address] [phone] Infected dog bite of right index finger, initial encounter 03/24/2025 Results Follow-Up [facility] at [address] [phone] Bee Dai, MELIDA XR Finger 2Nd Index Right 03/23/2025 11:00 AM CDT Office Visit [facility] at [address] [phone] Bee Dai, MELIDA Infected dog bite of right index finger, initial encounter (Primary Dx) 03/23/2025 8:58 AM CDT - 03/23/2025 9:05 AM CDT Hospital Encounter [facility] Operating Room [address] [place] [address] Cayden Chua MD Discharge Disposition: Discharge to home or self care 03/23/2025 Telephone [facility] [address] [place] [phone] Idalia Vyas PA 03/22/2025 ACO Quality [facility] Accountable Care Organization [address] [place] [phone] Zahida Hogan 03/20/2025 9:40 AM CDT Lab [address] [phone] Leukocytosis, unspecified type; Thrombocytosis 03/19/2025 Orders Only [facility] Primary Care at [address] [phone] Fadi Plaza MD Leukocytosis, unspecified type (Primary Dx); Thrombocytosis 03/19/2025 Telephone [facility] Primary Care at [address] [phone] Fadi Plaza MD Medical Question/Miscellaneou s 03/15/2025 8:25 AM CDT - 03/15/2025 11:59 PM CDT Hospital Encounter [facility] [address] [place] [address] Pre-op testing Discharge Disposition: Discharge to home or self care 03/15/2025 8:22 AM CDT - 03/15/2025 11:59 PM CDT Hospital Encounter [facility] Cardiology [address] [place] [address] Pre-op testing Discharge Disposition: Discharge to home or self care 03/15/2025 8:20 AM CDT Lab [address] [phone] Pre-op testing; Primary osteoarthritis of left knee 03/10/2025 Orders Only [facility] [address] [place] [phone] Cayden Chua MD Primary osteoarthritis of left knee (Primary Dx) from Last 3 Months Immunizations Immunization Administration Dates Next Due Hep A, Adult 12/15/1999 Influenza, Quadrivalent, Spl it, Intramuscular 06/04/2018,07/18/2017 Influenza, Quadrivalent, Spl it, Preservative Free, Intramuscular 07/28/2023,06/04/2022,08/23/2021 Influenza, Trivalent, Preser vative Free, Intramuscular 09/21/2024 Influenza, Unspecified 06/04/2021(Deferr ed: Patient Refused),06/04/2020(Deferred: Patient Refused) Pfizer SARS-CoV-2 Monovalent Vaccination (12+ Yrs) PURPLE 03/10/2021,02/17/2021 Pneumococcal Conjugate Pcv20 06/04/2022 Tdap 07/08/2020 Surgical History Surgery Date Site/Laterality Comments TUBAL LIGATION CARPAL TUNNEL RELEASE Right BACK SURGERY cage and screw in lower back COLONOSCOPY 06/09/2018 - 07/09/2018 [place] KNEE ARTHROSCOPY W/ LATERAL RELEASE Left SPINE SURGERY 2017 BARIATRIC SURGERY 2020 Gastric Sleeve Medical History Medical History Date Comments Hypertension Peripheral neuropathy Asthma Peptic ulceration Thyroid disease Depression Gastric reflux GERD (gastroesophageal reflux disease) Chronic constipation Colon polyp Type 2 diabetes mellitus pt stat es pre-diabetic 3 mos ago last checked Sleep apnea cpap machine Hypothyroidism Anxiety 2012 Arthritis 2013 Migraines 2017 Infection Menstrual problem Family History Medical History Relation Name Comments Arthritis Father Joshua Cancer Father Joshua Stroke Father Joshua Cancer Maternal Grandmother Brii Smiley Hypertension Maternal Grandmother Brii Smiley Arthritis Mother Brenda Gonsalez COPD Mother Brenda Arzategeon Depression Mother Brenda Gonsalez Diabetes Mother Brenda Gonsalez Hypertension Mother Brenda Gonsalez Breast cancer Mother's Sister Cancer Other Diabetes Other Heart disease Other Hypertension Other Stroke Other Heart attack Paternal Grandfather [place] Heart disease Paternal Grandfather [place] Hypertension Paternal Grandfather [place] Stroke Paternal Grandfather [place] Cancer Paternal Grandmother [place] Heart attack Paternal Grandmother [place] Heart disease Paternal Grandmother [place] Hypertension Paternal Grandmother [place] Miscarriages / Stillbirths Paternal Grandmother [place] Stroke Paternal Grandmother [place] Relation Name Status Comments Father Margoturgeon Maternal Grandmother Brii Smiley Mother Brenda Gonsalez Mother's Sister Other Paternal Grandfather [place] Paternal Grandmother [place] Social History Tobacco Use Types Packs/Day Years Used Date Smoking Tobacco: Former Cigarettes 1 17.6 1 - 02/03/2025 Smokeless Tobacco: Never Tobacco Cessation:Counseling Given: Not Answered Alcohol Use Standard Drinks/Week Comments Not Currently 0 (1 standard drink = 0.6 oz pur e alcohol) [facility] Utilities Answer Date Recorded In the past 12 months has [employer], gas, oil, or water [employer] threatened to shut off services in your home? No 07/26/2023 Social Connection and Isolation Panel Answer Date Recorded In a typical week, how many times do you talk on the phone with family, friends, or neighbors? More than three times a week 07/26/2023 How often do you get togethe r with friends or relatives? More than three times a week 07/26/2023 How often do you attend chur or presybeterian services? Never 07/26/2023 Do you belong to any clubs o r organizations such as gnosticist groups, unions, fraternal or athletic groups, or school groups? No 07/26/2023 How often do you attend meet ings of the clubs or organizations you belong to? Never 07/26/2023 Marital Status Not on file 07/26/2023 AUDIT-C Answer Date Recorded Q1: How often do you have a drink containing alcohol? Never 04/12/2025 Q2: How many drinks containi ng alcohol do you have on a typical day when you are drinking? Patient does not drink Q3: How often do you have si x or more drinks on one occasion? Never 04/12/2025 Overall Financial Resource Strain (CARDIA) Answe r Date Recorded How hard is it for you to pa y for the very basics like food, housing, medical care, and heating? Not hard at all 07/26/2023 PHQ-2 Answer Date Recorded PHQ-2 Total Score (If total score is 3 or more points, staff should administer the PHQ-9) 0 04/20/2025 Hunger Vital Sign Answer Date Recorded Within the past 12 months, y ou worried that your food would run out before you got the money to buy more. Never true 07/26/20 Within the past 12 months, t he food you bought just didn't last and you didn't have money to get more. Never true 07/26/2023 PRAPARE - Transportation Answer Date Re corded In the past 12 months, has l ack of transportation kept you from medical appointments or from getting medications? No 07/10 In the past 12 months, has l ack of transportation kept you from meetings, work, or from getting things needed for daily living? No 07/26/2023 Housing Stability Vital Sign Answer Ciro e Recorded In the last 12 months, was t here a time when you were not able to pay the mortgage or rent on time? No 07/26/2023 In the last 12 months, how many places have you lived? 1 07/26/2023 In the last 12 months, was t here a time when you did not have a steady place to sleep or slept in a long term (including now)? No 07/26/2023 PHQ-9 Answer Date Recorded PHQ-9 Total Score 17 12/29/2024 Personal Safety Answer Date Recorded Have you ever been in or are you currently in a harmful physical or emotional relationship or is someone making you feel afraid or unsafe? Denies 04/20/2025 Education Answer Date Recorded What is the highest level of school you have completed or the highest degree you have received? High school graduate 07/26/2023 Comments No Sex and Gender Information Value Date Recorded Sex Assigned at Not on file Legal Sex Female 11:49 AM CDT Gender Identity Not on file Sexual Orientation Not on file Obstetrics History Para Term AB IAB SAB Ectopic Multiple Livin g Live Births 3 3 3 1 1 Date Outcome GA Total Labor Labor/2nd/3rd Weight Sex Type Anes PTL Deborah A1 A5 Name Clin 1995 Term 40w 0d M Living 1998 Term 40w 0d F 2004 Term 40w 0d M Last Filed Vital Signs Vital Sign Reading Time Taken Comments Blood Pressure 143/75 04/21/2025 11:03 AM CDT Pulse 70 04/21/2025 11:03 AM CDT Temperature 36.6 C (97.9 F) 04/21/2025 11:03 AM CDT Respiratory Rate 20 04/21/2025 11:0 3 AM CDT Oxygen Saturation 96% 04/21/2025 11: 03 AM CDT Inhaled Oxygen Concentration - - Weight 94.7 kg (208 lb 12.4 oz) 04/20/2025 8:32 AM CDT Height 152.4 cm (5') 04/20/2025 8:32 AM CDT Body Mass Index 40.77 04/20/2025 8:32 AM CDT Plan of Treatment Health Maintenance Due Date Last Done Comments Hepatitis B Screening 1991 Foot Exam 06/04/2023 06/04/2022 Breast Cancer Screening-Mammogram 02/12/2025 02/13/2024, 08/03/2019, 08/03/2019 Regular Well Visit/Exam 18-64 02/19/2025 02/20/2024, 06/04/2022 Hemoglobin A1C 03/21/2025 09/21/2024, 06/09, 03/24/2024, Additional history exists Influenza Vaccine (#1) 2025 , 07/28/2023, 06/04/2022, Additional history exists Albumin Creatinine Ratio, Urine 09/21/2025 09/21/2024, 06/22/2024, 11/13/2022 Lipid Panel 09/21/2025 09/21/2024, 03/09, 06/04/2022 Zoster Vaccine (1 of 2) 09/21/2025 Post poned from 2023 (Insurance / Financial) eGFR 03/15/2026 03/15/2025, 12/09, 09/21/2024, Additional history exists Depression Screening 03/29/2026 03/29/2025, 12/29/2024, 12/29/2024, Additional history exists Dilated Eye Exam 05/21/2026 05/21/2025, 10/16/2022 Covid-19 Vaccine ( season) 2026 03/10/2021, 02/17/2021 Postponed from 05/10/2025 (Patient declined, but will receive in the future) DTaP/Tdap/Td Vaccine (2 - Td or Tdap) 07/08/2030 07/08/2020 Colon Cancer Screening-Colonoscopy 07/29/2030 07/29/2020 Pneumococcal vaccine <65 Completed 06/04/2022 Cervical Cancer Screening Discontinued 2023, 06/22/2019, 06/22/2019 Hepatitis C Screening Completed 09/21/2024 Medical Devices Implanted Type Area Home Fire Alarm Installer Device Identifier Shelf Expiration Date Model / Serial / Lot [email or web address] Angio-Seal Vip 6fr Closere Device [id number] - [id number] Implanted:Qty: 1 on 10/10/2022 by Phil Dodd MD at [facility] [email or web address] 06/08/2023 [id number] / / [id number] [employer] Attune Cruciate Retain Cementless Knee Left 5 Narrow Component [id number] - [id number] Implanted:Qty: 1 on 04/20/2025 by Cayden Chua MD at [facility] Left: Knee [employer] [id number] 01/06/2035 [id number] / / [id number] [employer] Insert Tibial Knee Fixed Lm Posterior Stabilized Attune 5mm Size 5 Polyethylene [id number] - [id number] Implanted:Qty: 1 on 04/20/2025 by Cayden Chua MD at [facility] Left: Knee [employer] [id number] 01/06/2033 [id number] / / [id number] [employer] Attune Fb Tib Base Sz 4 Por [id number] - [id number] Implanted:Qty: 1 on 04/20/2025 by Cayden Chua MD at [facility] Left: Knee [employer] [id number] 03/08/2034 [id number] / / [id number] Procedures Procedure Name Priority Date/Time Associated Diagnosis Comments HM DIABETES EYE EXAM Routine 05/21/2025 12:34 PM CDT POCT GLUCOSE DEVICE Routine 04/21/2025 11:03 AM CDT POCT GLUCOSE DEVICE Routine 04/21/2025 7 :37 AM CDT POCT GLUCOSE DEVICE Routine 04/21/2025 2 :56 AM CDT POCT GLUCOSE DEVICE Routine 04/20/2025 7 :24 PM CDT POCT GLUCOSE DEVICE Routine 04/20/2025 4 :38 PM CDT POCT GLUCOSE DEVICE Routine 04/20/2025 2 :17 PM CDT SURGICAL PATHOLOGY Routine 04/20/2025 1: 31 PM CDT Primary osteoarthritis of left knee XR KNEE LEFT 1 OR 2 VIEWS ED Urgent/IP Urgent 04/20/2025 1:21 PM CDT POCT GLUCOSE DEVICE Routine 04/20/2025 12:54 PM CDT ANESTHESIA SPINAL BLOCK Routine 04/20/2025 11:42 AM CDT ARTHROPLASTY TOTAL KNEE 04/20/2025 9:51 AM CDT Primary osteoarthritis of left knee Special Needs Depuy Attune , Velys, NMES, CPM, cooling unit, 1 liter beta rinse and aquamantys (overnight) PROTIME-INR STAT 04/20/2025 9:37 AM CDT APTT STAT 04/20/2025 9:37 AM CDT POTASSIUM, WHOLE BLOOD STAT 04/20/2025 8:50 AM CDT CRP (ACUTE PHASE) STAT 04/20/2025 8:5 0 AM CDT ERYTHROCYTE SEDIMENTATION RATE STAT 04/20/2025 8:50 AM CDT POCT GLUCOSE DEVICE Routine 04/20/2025 8 :27 AM CDT XR FINGER 2ND INDEX RIGHT Schedule JAIMEE, Read JAIMEE (Appt Today, Awaiting Results) 03/24/2025 12:26 PM CDT Infected dog bite of right index finger, initial encounter WOUND CARE Routine 03/23/2025 11:08 AM CDT Infected dog bite of right index finger, initial encounter SLIDE REVIEW - PATHOLOGIST Routine 03/20/2025 9:47 AM CDT Leukocytosis, unspecified type Thrombocytosis CLINICAL PATHOLOGY REPORT Routine 03/20/2025 8:41 AM CDT XR CHEST PA LATERAL 2 VIEWS Schedule Routine, Read Routine (OP Routine) 03/15/2025 8:55 AM CDT Pre-op testing ECG 12-LEAD Routine 03/15/2025 8:42 AM CDT Pre-op testing URINALYSIS, MICROSCOPIC ONLY Routine 03/15/2025 8:28 AM CDT Pre-op testing EGFR Routine 03/15/2025 8:28 AM CDT Pre-op testing DIFFERENTIAL AUTO Routine 03/15/2025 8:2 8 AM CDT Pre-op testing PROTIME-INR Routine 03/15/2025 8:28 AM CDT Primary osteoarthritis of left knee APTT Routine 03/15/2025 8:28 AM CDT Primary osteoarthritis of left knee COMPREHENSIVE METABOLIC PANEL Routine 03/15/2025 8:28 AM CDT Pre-op testing CBC WITH AUTO DIFFERENTIAL Routine 03/15/2025 8:28 AM CDT Pre-op testing URINALYSIS AND REFLEX TO MICROSCOPIC AND CULTURE Routine 03/15/2025 8:28 AM CDT Pre-op testing HEPATITIS C ANTIBODY Routine 09/21/2024 9:50 AM CHIEF PETROLEUM ENGINEER Encounter for hepatitis C screening test for low risk patient HEMOGLOBIN A1C Routine 09/21/2024 9:50 AM CHIEF PETROLEUM ENGINEER Type 2 diabetes mellitus with diabetic neuropathy, without long-term current use of insulin (HCC) LIPID PANEL Routine 09/21/2024 9:50 AM CHIEF PETROLEUM ENGINEER Primary hypertension ALBUMIN CREATININE RATIO, URINE Routine 09/21/2024 9:50 AM CHIEF PETROLEUM ENGINEER Type 2 diabetes mellitus with diabetic neuropathy, without long-term current use of insulin (HCC) PAP AND HPV, REFLEX TO HPV GENOTYPES Routine 02/20/2024 2:08 PM CDT SCREENING MAMMOGRAM BILATERAL W RUBA Schedule Routine, Read Routine (OP Routine) 02/13/2024 1:22 PM CDT Breast cancer screening by mammogram COLONOSCOPY 07/29/2020 9:54 AM CHIEF PETROLEUM ENGINEER from Last 3 Months or Most Recently Relevant to Health Maintenance Results * HM DIABETES EYE EXAM (05/21/2025 12:34 PM CDT) us Historical Provider HEALTH MAINTENANCE Final Result * POCT glucose (04/21/2025 11:03 AM CDT) Glucose, POC 148 70 - 199 mg/dL Blood 04/21/2025 11:0 3 AM CDT 04/21/2025 11:03 AM CDT Cayden Chua MD LAB POCT ORDERABLES - DEVICE Final Result [facility]IN CASTELLANOS ([place]) 1 [facility] [place] [address] * POCT glucose (04/21/2025 7:37 AM CDT) Glucose, POC 109 70 - 199 mg/dL Blood 04/21/2025 7:37 AM CDT 04/21/2025 7:37 AM CDT Cayden Chua MD LAB POCT ORDERABLES - DEVICE Final Result Performing Organization Address City/[facility]/ZIP Co de Phone Number [facility] ([place]) 1 [facility] [place] [address] * POCT glucose (04/21/2025 2:56 AM CDT) Glucose, POC 132 70 - 199 mg/dL Blood 04/21/2025 2:56 AM CDT 04/21/2025 2:56 AM CDT Cayden Chua MD LAB POCT ORDERABLES - DEVICE Final Result Performing Organization Address City/[facility] Co de Phone Number NAIN CASTELLANOS ([place]) 1 [facility] [place] [address] * POCT glucose (04/20/2025 7:24 PM CDT) Glucose, POC 197 70 - 199 mg/dL Blood 04/20/2025 7:24 PM CDT 04/20/2025 7:24 PM CDT Cayden Chua MD LAB POCT ORDERABLES - DEVICE Final Result Performing Organization Address City/[facility]/ZIP Co de Phone Number NAIN CASTELLANOS ([place]) 1 [place] [address] * (ABNORMAL) POCT glucose (04/20/2025 4:38 PM CDT) Glucose, POC 204(H) 70 - 199 mg/dL Blood 04/20/2025 4:38 PM CDT 04/20/2025 4:38 PM CDT Cayden Chua MD LAB POCT ORDERABLES - DEVICE Final Result Performing Organization Address City/[facility] Co de Phone Number [facility] CASTELLANOS ([place]) 1 [place] [address] * POCT glucose (04/20/2025 2:17 PM CDT) Glucose, POC 119 70 - 199 mg/dL Blood 04/20/2025 2:17 PM CDT 04/20/2025 2:17 PM CDT Cayden Chua MD LAB POCT ORDERABLES - DEVICE Final Result Performing Organization Address City/[facility] Co de Phone Number [facility] ([place]) [address] [place] [address] * Surgical pathology (04/20/2025 1:31 PM CDT) Tissue (Bone Fragment(s),) 04/20/2025 9:27 AM CDT Narrative PATHOLOGY [facility] ([place]) - 04/22/2025 11:37 AM CDT EPIC results best viewed via link to PDF [facility] Department of Pathology [address] [place] [address] Note to Patients: This report may contain a detailed description of human tissue sent by a health care provider to the laboratory for pathologic evaluation. The content of this report is essential for diagnosis and may provide important critical findings. This information may be unfamiliar to patients to review without a medical professional present. It is advised that the patient review this report in the presence of a health care provider who can answer questions and explain the details. Final Report Patient Name: GLORIA LANGLEY Address: [address] [place] [address] Gender: F : 1975 (Age: 49) Service: Surgery Location: [facility] Hospital #: [id number] Patient Type: [facility] OP in bed Taken: 04/20/2025 Received: 04/20/2025 Accessioned: 04/20/2025 Reported: 04/22/2025 Physician(s):Dr. Cayden Chua M.D. Diagnosis: Left knee, arthroplasty: - Degenerative joint disease consistent with osteoarthritis. Lev Wild M.D. Report Electronically Reviewed and Signed Out By Lev Wild M.D. 04/22/2025 11:37:23 Specimen(s) Received: A: Bone and tissue fragments left knee Microscopic Description: Sections show fragments of benign bone and cartilage. The overlying articular cartilaginous surface shows degenerative features including areas of erosion with fissures and clefting. The underlying medullary space shows some focal medullary fibrosis. No significant inflammatory infiltrate is seen. There is no evidence of malignancy. Sections from the soft tissue shows benign fibroconnective tissue only. Clinical History: Osteoarthritis of left knee. Left total knee arthroplasty. Gross Description: The container is labeled GLORIA LANGLEY and left knee. It is a 6.5 x 5 x 4 cm in aggregate of irregularly-shaped fragments of bone and an approximate 10 cc aggregate of soft tissue consisting of adipose tissue, portions of menisci and some synovium. Recognizable pieces of bone include the tibial plateau and portions of femoral condyles. Some of the bone fragments are covered by articular cartilage showing varying degrees of degenerative changes that include eburnation, pitting and roughened granularity. Decalcified and represented in two cassettes. Dinah Castillo R.N., P.A./Charley Bethea M.D. REPORT IMAGES AND SCANNED DOCUMENTS, IF INCLUDED, ONLY VIEWABLE IN PDF VERSION OF REPORT The performance characteristics of some immunohistochemical stains, fluorescence in-situ hybridization tests and immunophenotyping by flow cytometry cited in this report (if any) were determined by the Surgical Pathology Department at [facility] as part of an ongoing microbiology quality control technician program and in compliance with federally mandated regulations drawn from the Clinical Laboratory Improvement Act of 1988 (CLIA '88). Some of these tests rely on the use of analyte specific reagents and are subject to specific labeling requirements by the US Food and Drug Administration. Such diagnostic tests may only be performed in a facility that is certified by the Department of Health and Human Services as a high complexity laboratory under CLIA '88. The FDA has determined that such clearance or approval is not necessary. This test is used for clinical purposes. It should not be regarded as investigational or for research. Nevertheless, federal rules concerning the medical use of analyte specific reagents require that the following disclaimer be attached to the report: This test was developed and its performance characteristics determined by the Surgical Pathology Department [facility]. It has not been cleared or approved by the U. S. Food and Drug Administration. Note for decalcified specimens: This assay has not been validated on decalcified tissues. Results should be interpreted with caution given the possibility of false negativity on decalcified specimens Cayden Chua MD LAB PATHOLOGY ORDERABLES Fin al Result Performing Organization Address City/State/[facility] Co de Phone Number PATHOLOGY [address] [address] * X-ray knee left 1 or 2 views (04/20/2025 1:21 PM CDT) Anatomical Region Laterality Modality Lower Extremities, Knee Left Computed Radiography 04/20/2025 1:58 PM CDT Narrative 04/20/2025 1:59 PM CDT EXAM DESCRIPTION: XR KNEE LEFT 1 OR 2 VIEWS REASON FOR STUDY: Patient is status post left knee arthroplasty TECHNIQUE: There are 2 radiographic view(s) of the left knee . COMPARISON: Prior exam 05/27/2024 FINDINGS: Patient is status post bipolar left knee arthroplasty of the femoral and tibial components. No periprosthetic fracture or evidence of complication. Small osteochondroma favored along the medial aspect of the head neck junction of the left fibula, unchanged. No cortical irregularity to suggest dedifferentiation. Expected postoperative soft tissue change. IMPRESSION: Patient is status post bipolar left knee arthroplasty with no radiographic evidence of complication. THIS IS AN ELECTRONICALLY VERIFIED FINAL REPORT 04/20/2025 1:59 PM - Electronically signed by Lev DUMONT: TIM Report ID: [id number] Reading Location: [id number] Procedure Note Lev Armando MD - 04/20/2025 EXAM DESCRIPTION: XR KNEE LEFT 1 OR 2 VIEWS REASON FOR STUDY: Patient is status post left knee arthroplasty TECHNIQUE: There are 2 radiographic view(s) of the left knee . COMPARISON: Prior exam 05/27/2024 FINDINGS: Patient is status post bipolar left knee arthroplasty of the femoral and tibial components. No periprosthetic fracture or evidence ofcomplication. Small osteochondroma favored along the medial aspect of the head neckjunction of the left fibula, unchanged. No cortical irregularity to suggest dedifferentiation. Expected postoperative soft tissue change. IMPRESSION: Patient is status post bipolar left knee arthroplasty with no radiographic evidence of complication. THIS IS AN ELECTRONICALLY VERIFIED FINAL REPORT 04/20/2025 1:59 PM - Electronically signed by Lev Armando M.D. MJ: TIM Report ID: [id number] Reading Location: [id number] Cayden Chua MD IMG XR PROCEDURES Final Resu lt * POCT glucose (04/20/2025 12:54 PM CDT) Glucose, POC 119 70 - 199 mg/dL Blood 04/20/2025 12:5 4 PM CDT 04/20/2025 12:54 PM CDT Cayden Chua MD LAB POCT ORDERABLES - DEVICE Final Result NAIN EMANUEL ([place]) 1 [facility] [place] [address] * Spinal Block (04/20/2025 11:42 AM CDT) Narrative Yadi Queen CRNA - 04/20/2025 11:42 AM CDT Yadi Queen CRNA 04/20/2025 11:42 AM Spinal Block Patient location: OR Reason for block: primary anesthetic Staff: Supervising provider: Chencho Lara MD Placed by: POOL CLEANER:Yadi Queen CRNA Procedure prep: Preprocedure checklist: patient identified, procedure contraindications assessed, site marked, procedure consent, surgical consent, IV checked, risks, benefits and alternatives discussed, monitors and equipment checked and timeout performed Patient position: sitting Procedure performed while patient: awake Monitoring: oximetry and blood pressure Prep solution: chlorhexadine/alcohol PPE: provider hat/mask, sterile gloves and sterile drape Skin infiltrated with lidocaine 1%: yes Spinal: Approach: midline Introducer used: yes Other location: L1-2 Spinal injection: CSF demonstrated, no aspiration of heme and no paresthesias noted Number of attempts: 1 Spinal Needle: Needle type: pencil-tip Needle gauge: 25 G Needle length: 9 cm Assessment: Events: patient tolerated procedure well with no complications Chencho Lara MD ANESTHESIA ORDERABLES Fi nal Result * aPTT (04/20/2025 9:37 AM CDT) aPTT 29 26 - 38 sec [facility] CASTELLANOS ([place]) Comment: Interpretive Data Heparin therapeutic range: 66.0 - 100.0 seconds. Range based on correlation with therapeutic heparin activity range of 0.3 - 0.7 Units/mL. Current interpretive data was last revised on 2023. Blood 04/20/2025 9:37 AM CDT 04/20/2025 9:41 AM CDT Cayden Chua MD LAB BLOOD ORDERABLES Final R esult Performing Organization Address [facility]/ZIP Co de Phone Number NAIN CASTELLANOS ([place]) 1 [facility] [place] [address] * Protime-INR (04/20/2025 9:37 AM CDT) PT 11.4 10.2 - 13.[address] [facility] ([place] INR 1.01 0.90 - 1.20 [facility] ([place]) Comment: Interpretive data Oral anticoagulant therapeutic ranges: Venous thromboembolism prophylaxis or treatment: 2.0-3.0 CARDIOLOGY Standard range: 2.0-3.0 High-intensity range: 2.5-3.5 Refer to indication-specific guidelines for appropriate target ranges for prosthetic heart valve replacement. Current interpretive data was last revised on 2019. Blood 04/20/2025 9:37 AM CDT 04/20/2025 9:41 AM CDT us Cayden Chua MD LAB BLOOD ORDERABLES Final R esult Performing Organization Address [facility] Co de Phone Number NAIN CASTELLANOS ([place]) [address] [place] [address] * Potassium, whole blood (04/20/2025 8:50 AM CDT) Potassium, bld 3.5 3.3 - 4.9 mmol/L Comment: Interpretive Data This method is not able to assess for hemolysis, which may falsely increase potassium concentrations. If further testing is needed to evaluate this result, consider in-laboratory plasma potassium. Current Interpretive Data was last revised on 2022. Blood 04/20/2025 8:50 AM CDT 04/20/2025 8:53 AM CDT us Yoni Ojeda MD LAB BLOOD ORDERABLES F inal Result Performing Organization Address [facility] Co de Phone Number NAIN CASTELLANOS ([place]) 1 [facility] [place] [address] * Erythrocyte sedimentation rate (04/20/2025 8:50 AM CDT) Erythrocyte sedimentation rate 10 1 - 30 mm/hr Blood 04/20/2025 8:50 AM CDT 04/20/2025 8:53 AM CDT Cayden Chua MD LAB BLOOD ORDERABLES Final R esult Performing Organization Address [facility] Co de Phone Number NAIN CASTELLANOS ([place]) 1 [facility] [place] [address] * (ABNORMAL) CRP (acute phase) (04/20/2025 8:50 AM CDT) Pathologist [facility] CRP 23.6(H) <=10.0 mg/L NAIN David ([place]) Blood 04/20/2025 8:50 AM CDT 04/20/2025 8:53 AM CDT us Cayden hCua MD LAB BLOOD ORDERABLES Final R esult Performing Organization Address [facility] Co de Phone Number NAIN CASTELLANOS ([place]) [address] [place] [address] [place] [address] * POCT glucose (04/20/2025 8:27 AM CDT) Glucose, POC 118 70 - 199 mg/dL Blood 04/20/2025 8:27 AM CDT 04/20/2025 8:27 AM CDT Cayden Chua MD LAB POCT ORDERABLES - DEVICE Final Result Performing Organization Address [facility] [facility] Co de Phone Number NAIN CASTELLANOS ([place]) 1 [facility] [place] [address] * XR Finger 2Nd Index Right (03/24/2025 12:26 PM CDT) Anatomical Region Laterality Modality Upper Extremities, Hand, Fingers Right Digital Radiography 03/24/2025 12:3 7 PM CDT Narrative 03/24/2025 12:38 PM CDT EXAM DESCRIPTION: XR FINGER 2ND INDEX RIGHT REASON FOR STUDY: Other (type), rule out osteomyelitis R/o osteomyelitis TECHNIQUE: 3 radiographic view(s) of the right hand 2nd digit . COMPARISON: None FINDINGS: There is no definite evidence of acute displaced fracture or dislocation involving of the 2nd digit of the right hand. There is no definite evidence of osseous erosion or osseous destruction. There is no definite evidence of radiopaque foreign body. There is mild soft tissue swelling. IMPRESSION: 1. Mild soft tissue swelling involving the 2nd digit of the right hand without definite evidence of acute displaced fracture or dislocation. If there is continued clinical concern for osteomyelitis, then further evaluation with MRI is recommended. THIS IS AN ELECTRONICALLY VERIFIED FINAL REPORT 03/24/2025 12:38 PM - Electronically signed by Mushtaq Bradshaw D.O. PS T: Report ID: [id number] Reading Location: [id number] Procedure Note Mushtaq Bradshaw, DO - 03/24/2025 EXAM DESCRIPTION: XR FINGER 2ND INDEX RIGHT REASON FOR STUDY: Other (type), rule out osteomyelitis R/o osteomyelitis TECHNIQUE: 3 radiographic view(s) of the right hand 2nd digit . COMPARISON: None FINDINGS: There is no definite evidence of acute displaced fracture or dislocation involving of the 2nd digit of the right hand. There is no definite evidence of osseous erosion or osseous destruction. There is no definite evidence of radiopaque foreign body. There is mild soft tissue swelling. IMPRESSION: 1. Mild soft tissue swelling involving the 2nd digit of the right hand without definite evidence of acute displaced fracture or dislocation. Ifthere is continued clinical concern for osteomyelitis, then further evaluationwith MRI is recommended. THIS IS AN ELECTRONICALLY VERIFIED FINAL REPORT 03/24/2025 12:38 PM - Electronically signed by Mushtaq Bradshaw D.O. PS T: Report ID: [id number] Reading Location: [id number] eBe Dai NP IMG XR PROCEDURES Final Result * Wound Care (03/23/2025 11:08 AM CDT) Narrative Bjorn Woodson MD - 03/23/2025 11:08 AM CDT Bjorn Woodson MD 03/23/2025 11:20 AM Wound Care Date/Time: 03/23/2025 11:08 AM Performed by: Bee Dai NP Authorized by: Bee Dai NP Consent: Consent obtained: Verbal Consent given by: Patient Risks, benefits, and alternatives were discussed: yes Risks discussed: Infection and pain Alternatives discussed: Observation, referral and alternative treatment Mcfaddin protocol: Procedure explained and questions answered to patient or proxy's satisfaction: yes Immediately prior to procedure, a time out was called: yes Patient identity confirmed: Verbally with patient Procedure details: Indications comment: Dog bite Wound location: Finger Finger location: R index finger Wound age (days): 4 Skin layer closed with: Wound care performed: soaked in saline and wound cleanser. Post-procedure details: Procedure completion: Tolerated well, no immediate complications Bee Dai NP IN CLINIC/BEDSIDE ORDERABLES Fi nal Result * Slide review - pathologist (03/20/2025 9:47 AM CDT) Slide review by Dr. Rivera Comment: Interpretive Data See Clinical Pathology Report under Media section in EPIC. Current Interpretive Data was last revised on 2018. Blood 03/20/2025 9:47 AM CDT 03/20/2025 10:11 AM CDT us Fadi Plaza MD LAB BLOOD ORDERABLES Final Result [facility] [place] 1 [facility] Department of Laboratories [place], [place] [id number] * Clinical pathology report (03/20/2025 8:41 AM CDT) Miscellaneous 03/20/2025 8:4 1 AM CDT 03/22/2025 8:41 AM CDT Narrative 03/22/2025 10:02 AM CDT [facility] results best viewed via link to PDF [facility] Department of Pathology [address] [place] [id number] Final Report Note to Patients: This report may contain a detailed description of human tissue sent by a health care provider to the laboratory for pathologic evaluation. The content of this report is essential for diagnosis and may provide important critical findings. This information may be unfamiliar to patients to review without a medical professional present. It is advised that the patient review this report in the presence of a health care provider who can answer questions and explain the details. Patient Name: GLORIA LANGLEY Address: [address] [place] [address] Gender: F : 1975 (Age: 49) Service: Location: N : [id number] [facility] #: [id number] Patient Type: [facility] EP ANCILLARY Taken: 03/20/2025 Received: 03/22/2025 Accessioned: 03/22/2025 Physician(s): Fadi Plaza M.D. Specimen(s) Received A: Blood Peripheral Blood Smear ReviewReported:03/22/2025 Microscopic review of the peripheral blood smear shows the red blood cells to be overall normal in number and morphology. No significant schistocyte population is seen. No nucleated red blood cells are identified. The white blood cells are significant for an absolute neutrophilic leukocytosis. The neutrophils show appropriate nuclear segmentation and cytoplasmic granulation. No significant left shift is seen. No blasts are identified. Scattered lymphocytes are present and are small and mature with no definitively atypical forms seen. Scattered monocytes, eosinophils, and basophils are seen which are normal in number and morphology. The platelets are significant for a mild thrombocytosis. The platelets appear to be well granulated and show a normal size distribution. Neutrophils 62, Lymphocytes 25, Monocytes 10, Eosinophils 2, Basophils 1 Interpretation: Peripheral blood smear review: Absolute neutrophilic leukocytosis. Mild thrombocytosis. Lev Wild M.D.Report Electronically Reviewed and Signed Out By Lev Wild M.D. 03/22/2025 10:00:21 The performance characteristics of some immunohistochemical stains, fluorescence in-situ hybridization tests and immunophenotyping by flow cytometry cited in this report (if any) were determined by the Surgical Pathology Department at [facility] as part of an ongoing microbiology quality control technician program and in compliance with federally mandated regulations drawn from the Clinical Laboratory Improvement Act of 1988 (CLIA '88). Some of these tests rely on the use of analyte specific reagents and are subject to specific labeling requirements by the US Food and Drug Administration. Such diagnostic tests may only be performed in a facility that is certified by the Department of Health and Human Services as a high complexity laboratory under CLIA '88. The FDA has determined that such clearance or approval is not necessary. This test is used for clinical purposes. It should not be regarded as investigational or for research. Nevertheless, federal rules concerning the medical use of analyte specific reagents require that the following disclaimer be attached to the report: This test was developed and its performance characteristics determined by the Surgical Pathology Department [facility]. It has not been cleared or approved by the U. S. Food and Drug Administration. REPORT IMAGES AND SCANNED DOCUMENTS, IF INCLUDED, ONLY VIEWABLE IN PDF VERSION OF REPORTe o Fadi Palza MD LAB PATHOLOGY ORDERABLES Fi nal Result * XR Chest Pa Lateral 2 Views (03/15/2025 8:55 AM CDT) Anatomical Region Laterality Modality Body, Chest N/A Computed Radiogr aphy 03/19/2025 8:04 PM CDT Narrative 03/19/2025 8:06 PM CDT EXAM DESCRIPTION: XR CHEST PA LATERAL 2 VIEWS REASON FOR STUDY: pre op test Pre op for left knee replacement March 23 Sleep apnea HTN-medicated Smoker TECHNIQUE: 2 radiographic view(s) of the chest. COMPARISON: 09/24/2023 FINDINGS: LUNGS: Minor haziness of the right base is noted which may represent minor infiltrate or atelectasis. The left lung appears grossly clear. No large consolidation is seen. HEART/MEDIASTINUM: Cardiac silhouette normal in size. Mediastinal and hilar contours appear normal. LINES/TUBES: None. BONES: No acute osseous abnormality. IMPRESSION: Minor infiltrate or atelectasis of the right base. THIS IS AN ELECTRONICALLY VERIFIED FINAL REPORT 03/19/2025 8:06 PM - Electronically signed by Yasmani Jalloh M.D. KH: ANANTH Report ID: [id number] Reading Location: [id number] Procedure Note Yasmani Jalloh MD - 03/19/2025 EXAM DESCRIPTION: XR CHEST PA LATERAL 2 VIEWS REASON FOR STUDY: pre op test Pre op for left knee replacement March 23 Sleep apnea HTN-medicatedSmoker TECHNIQUE: 2 radiographic view(s) of the chest. COMPARISON: 09/24/2023 FINDINGS: LUNGS: Minor haziness of the right base is noted which may representminor infiltrate or atelectasis. The left lung appears grossly clear. No large consolidation is seen. HEART/MEDIASTINUM: Cardiac silhouette normal in size. Mediastinal andhilar contours appear normal. LINES/TUBES: None. BONES: No acute osseous abnormality. IMPRESSION: Minor infiltrate or atelectasis of the right base. THIS IS AN ELECTRONICALLY VERIFIED FINAL REPORT 03/19/2025 8:06 PM - Electronically signed by Yasmani Jalloh M.D. KH: ANANTH Report ID: [id number] Reading Location: [id number] Cayden Chua MD IMG XR PROCEDURES Final Resu lt * ECG 12 lead (03/15/2025 8:42 AM CDT) 03/15/2025 8:41 AM CDT [facility] - 03/15/2025 9:01 AM CDT Vent Rate: 72 bpm RR Interval: 830 msec CA Interval: 178 msec QRS Duration: 89 msec QT Interval: 388 msec QTC Interval: 412 msec P-R-T [place]: 1 - -9 - 47 degrees IMPRESSION: SINUS RHYTHM MODERATE VOLTAGE CRITERIA FOR LVH, CONSIDER NORMAL VARIANT [MEETS CRITERIA IN ONE OF: R(aVL), S(V1), R(V5), R(V5/V6)+S(V1)] NONSPECIFIC T-WAVE ABNORMALITY BORDERLINE ECG Compared to prior EKG, QT interval has decreased Electronically Signed By: Phil Dodd MD Cayden Chua MD ECG ORDERABLES Final Result [facility] * eGFR (03/15/2025 8:28 AM CDT) eGFR >90 >=60 mL/min/1. 73 m2 Comment: Interpretive Data Reference Interval Normal >/= 90 mL/min/1.73m2 Mildly decreased* 60 - 89 mL/min/1.73m2 Mildly to moderately decreased 45 - 59 mL/min/1.73m2 Moderately to severely decreased 30 - 44 mL/min/1.73m2 Severely decreased 15 - 29 mL/min/1.73m2 Kidney Failure < 15 mL/min/1.73m2 *Relative to young adult level Estimated glomerular filtration rate is determined by the 2020 CKD-EPI equation recommended by the National Kidney Foundation (A Unifying Approach to GFR Estimation: Recommendations of the NKF-ASK Task Force on Reassessing the Inclusion of Race in Diagnosing Kidney Disease, JASN 2020). The CKD-EPI equation should not be used for patients with unstable renal function and has not been validated in children and those over 70. Current interpretive data was last reviewed 2021. Blood 03/15/2025 8:28 AM CDT 03/15/2025 8:44 AM CDT Cayden Chua MD LAB BLOOD ORDERABLES Final R esult NAIN CASTELLANOS ([place]) 1 [facility] Department [place] [address] * (ABNORMAL) Differential, auto (03/15/2025 8:28 AM CDT) Neutrophil abs 9.02(H) 1.50 - 6.50 K/cumm Imm gran abs 0.04 0.00 - 0.10 K/cumm [facility] ([place]) Lymphocyte abs 2.81 0.80 - 3.30 K/cumm [facility] ([place]) Monocyte abs 0.80 0.20 - 0.80 K/cumm [facility] ([place]) Eosinophil abs 0.24 0.00 - 0.50 K/cumm [facility] ([place]) Basophil abs 0.10 0.00 - 0.10 K/cumm [facility] ([place]) Neutrophil pct 69.4 % [facility] ([place]) Comment: Interpretive Data Percent cell count reference ranges are not reported, since discordance with absolute values may lead to misinterpretation of CBC data. Current Interpretive Data was last revised on 2017. Imm gran pct 0.3 % [facility] ([place]) Comment: Interpretive Data Percent cell count reference ranges are not reported, since discordance with absolute values may lead to misinterpretation of CBC data. Current Interpretive Data was last revised on 2017. Lymphocyte pct 21.6 % [facility] ([place]) Comment: Interpretive Data Percent cell count reference ranges are not reported, since discordance with absolute values may lead to misinterpretation of CBC data. Current Interpretive Data was last revised on 2017. Monocyte pct 6.1 % [facility] ([place]) Comment: Interpretive Data Percent cell count reference ranges are not reported, since discordance with absolute values may lead to misinterpretation of CBC data. Current Interpretive Data was last revised on 2017. Eosinophil pct 1.8 % [facility] ([place]) Comment: Interpretive Data Percent cell count reference ranges are not reported, since discordance with absolute values may lead to misinterpretation of CBC data. Current Interpretive Data was last revised on 2017. Basophil pct 0.8 % [facility] ([place]) Comment: Interpretive Data Percent cell count reference ranges are not reported, since discordance with absolute values may lead to misinterpretation of CBC data. Current Interpretive Data was last revised on 2017. Blood 03/15/2025 8:28 AM CDT 03/15/2025 8:44 AM CDT us Cayden Chua MD LAB BLOOD ORDERABLES Final R esult NAIN CASTELLANOS ([place]) 1 [facility] Department [place] [address] * (ABNORMAL) Urinalysis reflex to microscopic and culture Urine, clean voided (03/15/2025 8:28 AM CDT) Color, ur Yellow Yellow Clarity, ur Clear Clear [facility] ([place]) Specific gravity, ur 1.018 1.003 - 1.030 [facility] ([place]) pH, urine 7.0 [facility] ([place]) Comment: Interpretive Data U rine pH is affected by diet, medications, systemic acid-base disturbances, and renal tubular function. pH may affect urinary stone formation. For example, urine pH below 6.0 may help reduce the tendency for calcium phosphate stones and pH greater than 6.0 may reduce the tendency for uric acid stone formation. Source: [facility] [employer] Current Interpretive Data was last revised on 2017 Protein, ur ql Negative Negative [facility] ([place]) Glucose, ur ql Negative Negative [facility] ([place]) Ketones, ur Negative Negative [facility] ([place]) Bilirubin, ur Negative Negative [facility] ([place]) Blood, ur 1+(A) Negative [facility] ([place]) Urobilinogen, ur <2.0 <2.0 mg/dL [facility] ([place]) Nitrite, ur Negative Negative [facility] ([place]) Leukocyte esterase, ur Negative Negative [facility] ([place]) UA reflex comment Reflex to microscopic UA will be performed. [facility] ([place]) Urine, clean voided 03/15/2025 8:28 AM CDT 03/15/2025 9:07 AM CDT us Cayden Chua MD LAB MICROBIOLOGY - GENERAL O RDERABLES Final Result [facility] ([place]) 1 [facility] Department of Laboratories [place], [place] [id number] * (ABNORMAL) CBC with auto differential (03/15/2025 8:28 AM CDT) WBC 13.01(H) 3.80 - 9.90 K/cumm Hgb 14.0 11.9 - 15.5 g/dL [facility] ([place]) Hct 42.9 35.6 - 45.5 % [facility] ([place]) Plt 428(H) 150 - 400 K/cumm [facility] ([place]) MPV 9.6 9.1 - 12.3 fL [facility] ([place]) RBC 5.00 3.90 - 5.20 M/cumm [facility] ([place]) MCV 85.8 81.3 - 96.4 fL [facility] ([place]) MCH 28.0 27.1 - 33.3 pg [facility] ([place]) MCHC 32.6 32.3 - 35.7 g/dL [facility] ([place]) RDW CV 14.4 11.1 - 14.9 % [facility] ([place]) RDW SD 45.1 35.7 - 48.1 fL [facility] ([place]) NRBC abs 0.00 0.00 - 0.01 K/cumm [facility] ([place]) Blood 03/15/2025 8:28 AM CDT 03/15/2025 8:44 AM CDT Cayden Chua MD LAB BLOOD ORDERABLES Final R esult Performing Organization Address City/[facility] Co de Phone Number NAIN [facility] ([place]) 1 [facility] [place] [address] * (ABNORMAL) Urinalysis, microscopic only (03/15/2025 8:28 AM CDT) WBC, ur 0-5 0 - 5 /HPF RBC, ur 6-10(A) 0 - 2 /HPF [facility] ([place]) Epithelial cells, squamous, ur 1-5 0 - 5 /HPF [facility] ([place]) Mucous, ur Present(A) [facility] ([place]) Culture Reflex Comment Reflex conditions for urine culture (WBC >10) not met. [facility] ([place]) Urine, clean voided 03/15/2025 8:28 AM CDT 03/15/2025 9:07 AM CDT Cayden Chua MD LAB URINE ORDERABLES Final R esult Performing Organization Address City/State/[facility] Co de Phone Number NAIN CASTELLANOS ([place]) 1 [facility] [place] [address] * aPTT (03/15/2025 8:28 AM CDT) aPTT 30 28 - 38 sec NAIN CASTELLANOS ([place]) Comment: Interpretive Data Heparin therapeutic range: 66.0 - 100.0 seconds. Range based on correlation with therapeutic heparin activity range of 0.3 - 0.7 Units/mL. Current interpretive data was last revised on 2023. Blood 03/15/2025 8:28 AM CDT 03/15/2025 8:44 AM CDT Cayden Chua MD LAB BLOOD ORDERABLES Final R esult Performing Organization Address [facility] de Phone Number NAIN CASTELLANOS ([place]) 1 [facility] [place] [address] * Protime-INR (03/15/2025 8:28 AM CDT) PT 10.3 9.7 - 13.0 sec NA[facility] CASTELLAN[facility] ([place]) INR 0.95 0.90 - 1.20 NAIN CASTELLANOS ([place]) Comment: Interpretive data Oral anticoagulant therapeutic ranges: Venous thromboembolism prophylaxis or treatment: 2.0-3.0 CARDIOLOGY Standard range: 2.0-3.0 High-intensity range: 2.5-3.5 Refer to indication-specific guidelines for appropriate target ranges for prosthetic heart valve replacement. Current interpretive data was last revised on 2019. Blood 03/15/2025 8:28 AM CDT 03/15/2025 8:44 AM CDT Narrative NA[facility] CASTELLANOS ([place]) - 03/15/2025 9:13 AM CDT Repeat AM day of surgery if on coumadin Cayden Chua MD LAB BLOOD ORDERABLES Final R esult Performing Organization Address [facility] Co de Phone Number NAIN CASTELLANOS ([place]) 1 [facility] [place] [address] * Comprehensive metabolic panel (03/15/2025 8:28 AM CDT) Sodium 140 135 - 145 mmol/L Potassium, pl 3.6 3.3 - 4.9 mmol/L [facility] ([place]) Chloride 102 97 - 110 mmol/L [facility] ([place]) CO2 26 22 - 32 mmol/L [facility] ([place]) Anion gap 12 2 - 15 mmol/L [facility] ([place]) BUN 6 6 - 25 mg/dL [facility] ([place]) Creatinine 0.63 0.60 - 1.10 mg/dL [facility] ([place]) Glucose 107 70 - 199 mg/dL [facility] ([place]) Comment: Interpretive Data Fasting glucose >/= 126 mg/dl is diagnostic for diabetes. Fasting is defined as no caloric intake for at least 8 hours. Fasting glucose between 100 mg/dl to 125 mg/dl is diagnostic of prediabetes. In a patient with classic symptoms of hyperglycemia or hyperglycemic crisis, a random glucose >/= 200 mg/dl is diagnostic for diabetes. In the absence of unequivocal hyperglycemia, results should be confirmed by repeat testing. The classification and Diagnosis of Diabetes Diabetes Care 2021; 46: S19-S40. Current interpretive data was last revised 2022. Calcium 8.8 8.5 - 10.3 mg/dL [facility] ([place]) Bilirubin, total 0.3 0.1 - 1.2 mg/dL [facility] ([place]) Protein, pl 6.9 6.5 - 8.5 g/dL [facility] ([place]) Albumin 3.8 3.5 - 5.0 g/dL [facility] ([place]) Alk phos 91 40 - 130 Units/L [facility] ([place]) ALT 17 7 - 45 Units/L [facility] ([place]) AST 25 10 - 45 Units/L [facility] ([place]) Blood 03/15/2025 8:28 AM CDT 03/15/2025 8:44 AM CDT Cayden Chua MD LAB BLOOD ORDERABLES Final R esult Performing Organization Address City/[facility] Co de Phone Number NAIN [facility] ([place]) 1 [facility] [place] [address] * Hepatitis C antibody Blood (09/21/2024 9:50 AM CHIEF PETROLE[employer] ENGINEER) Hep C Ab Nonreactive Nonreactive Comment: Interpretive Data Nonreactive: Antibodies to HCV not detected. Does NOT exclude the possibility of recent exposure to HCV. Equivocal: Equivocal for HCV antibodies. Supplemental molecular testing will be automatically performed to determine infection status in accordance with current CDC screening recommendations. Reactive: Positive for HCV antibodies. This may represent current or past HCV infection. Supplemental molecular testing will be automatically performed to determine current infection status in accordance with current CDC screening recommendations. Interpretive data was last revised on 2019. Blood 09/21/2024 9:50 AM CHIEF [employer]ROLE[employer] ENGINEER 09/21/2024 6:51 PM CHIEF [employer]ROLEUM ENGINEER Result [facility] Fadi lPaza MD LAB MICROBIOLOGY - GENERAL ORDERABLES Final Result Performing Organization Address [facility] de Phone Number NAIN [phone] [place] [address] * Albumin Creatinine Ratio, Urine (09/21/2024 9:50 AM CHIEF [employer]ROLEUM ENGINEER) Albumin Ur 19.4 mg/L Comment: Interpretive Data No reference range established. Current interpretive data was last revised 2019. Creatinine Ur 193.6 mg/dL NAIN Comment: Interpretive Data No reference range established. Current interpretive data was last revised 2019. Albumin Creatinine Ratio, Ur 10 1 - 29 mg/g NAIN Urine 09/21/2024 9:50 AM CHIEF [employer]ROLE[employer] ENGINEER 09/21/2024 6:51 PM CHIEF [employer]ROLE[employer] ENGINEER Fadi Plaza MD LAB URINE ORDERABLES Final Result Performing Organization Address [facility] Co de Phone Number NAIN [phone] [address] [place] [place] [address] * (ABNORMAL) Hemoglobin A1c (09/21/2024 9:50 AM CHIEF [employer]ROLEUM ENGINEER) Hgb A1C 6.0(H) 4.0 - 5.6 % Estimated Average Glucose 126 mg/dL NAIN [place] Comment: The ADA recommends reporting an estimated Average Glucose (eAG) with all Hemoglobin A1c results using the equation derived from a study of 507 normal and diabetic adults. Minority populations were underrepresented and children were not included. (Diabetes Care 31:6457-8658, 2008). The eAG is not equivalent to a fasting glucose. Blood 09/21/2024 9:50 AM CHIEF PETROLEUM ENGINEER 09/21/2024 6:51 PM CHIEF [employer]ROLEUM ENGINEER us Fadi Plaza MD LAB BLOOD ORDERABLES Final Result NAIN [place] [address] Department [place] [address] * Lipid panel (09/21/2024 9:50 AM CHIEF [employer]ROLEUM ENGINEER) Cholesterol 127 30 - 199 mg/dL Comment: Interpretive Data Ages < or = 19 years Acceptable: <170 mg/dL Borderline high: 170-199 mg/dL High: >or= 200 mg/dL Ages > or = 20 years Desirable: <200 mg/dL Borderline high: 200-239 mg/dL High: >or= 240 mg/dL Literature References: 1. Expert Panel on Integrated Guidelines for Cardiovascular Health and Risk Reduction in Children and Adolescents. Pediatrics 2011;128:S213 2. NCEP Expert Panel. Circulation 2004;110:227 Current Interpretive Data was last revised on 2018. Triglycerides 107 <=149 mg/dL NAIN ARGUELLES Comment: Interpretive Data Ages < or = 9 years Acceptable: <75 mg/dL Borderline high: 75-99 mg/dL High: >or= 100 mg/dL Ages 10 to 20 years Acceptable: <90 mg/dL Borderline high: 90-129 mg/dL High: >or= 130 mg/dL Ages > or = 20 years Desirable: <150 mg/dL Borderline high: 150-199 mg/dL High: 200-499 mg/dL Very high: >or= 499 mg/dL Literature References: 1. Expert Panel on Integrated Guidelines for Cardiovascular Health and Risk Reduction in Children and Adolescents. Pediatrics 2011;128:S213 2. NCEP Expert Panel. Circulation 2004;110:227 Current Interpretive Data was last revised on 2018. HDL 54 >=40 mg/dL NAIN ARGUELLES Comment: Interpretive Data Ages < or = 19 years Acceptable: >45 mg/dL Borderline low: 40-45 mg/dL Low: <40 mg/dL Ages > or = 20 years Desirable: >or= 60 mg/dL Low: <40 mg/dL Literature References: 1. Expert Panel on Integrated Guidelines for Cardiovascular Health and Risk Reduction in Children and Adolescents. Pediatrics 2011;128:S213 2. NCEP Expert Panel. Circulation 2004;110:227 Current Interpretive Data was last revised on 2018. LDL, calculated 53 <=129 mg/dL NAIN ARGUELLES Comment: Interpretive Data Ages < or = 19 years Acceptable: <110 mg/dL Borderline high: 110-129 mg/dL High: >or= 130 mg/dL Ages > or = 20 years Optimal: <100 mg/dL Near optimal: 100-129 mg/dL Borderline high: 130-159 mg/dL High: >160 mg/dL Calculated using the Gordon LDL-C estimating equation. This equation was implemented on 2024. Prior to this date LDL-C was estimated using the Friedewald equation. Literature References: 1. Expert Panel on Integrated Guidelines for Cardiovascular Health and Risk Reduction in Children and Adolescents. Pediatrics 2011;128:S213 2. NCEP Expert Panel. Circulation 2004;110:227 3. Gordon Chase et al. SUSAN Cardiol. 2019January 07;5(5):540-548. doi: 10.1001/jamacardio.2020.0013 Current Interpretive Data was last revised on 2024. Non-HDL Cholesterol 73 mg/dL NAIN ARGUELLES Comment: Interpretive Data Ages < or = 19 years Acceptable: <120 mg/dL Borderline high: 120-144 mg/dL High: >145 mg/dL Ages > or = 20 years When triglycerides are >200 mg/dL, Non-HDL cholesterol is a secondary target of therapy with treatment goals that are 30 mg/dL greater than the LDL cholesterol target. Literature References: 1. Expert Panel on Integrated Guidelines for Cardiovascular Health and Risk Reduction in Children and Adolescents. Pediatrics 2011;128:S213 2. NCEP Expert Panel. Circulation 2004;110:227 Current Interpretive Data was last revised on 2018. Chol/HDL ratio 2 NAIN ARGUELLES Blood 09/21/2024 9:50 AM CHIEF PETROLEUM ENGINEER 09/21/2024 6:51 PM CHIEF PETROLEUM ENGINEER Fadi Plaza MD LAB BLOOD ORDERABLES Final Result [facility]IN ARG[facility]LL[facility] [address] Department [place] [address] * Pap and HPV, reflex to HPV Genotypes (02/20/2024 2:08 PM CDT) Clinical indication Comment [facility] - 01 Comment:NEGATIVE FOR INTRAEP ITHELIAL LESION OR MALIGNANCY. Specimen adequacy: Comment [facility] - 01 Comment:Satisfactory for kristy luation. No endocervical component is identified. Clinician provided ICD10 Comment [facility] - 01 Comment:Z01.419 Performed by Comment [facility] - 01 Comment:Quentin Bailey, [facility] otechnologist (ASCP) . . [facility] - 01 Note: Comment [facility] - 01 Comment: The Pap smear is a screening test designed to aid in the detection of premalignant and malignant conditions of the uterine cervix. It is not a diagnostic procedure and should not be used as the sole means of detecting cervical cancer. Both false-positive and false-negative reports do occur. Test methodology Comment [facility] - 01 Comment: This liquid based ThinPrep(R) pap test was screened with the use of an image guided system. HPV Aptima Negative Negative [facility] 02 Comment: This nucleic acid amplification test detects fourteen high-risk HPV types (16,18,31,33,35,39,45,51,52,56,58,59,66,68) without differentiation. HPV Genotype Reflex Comment [facility] - 01 Comment:Criteria not met, HP V Genotype not performed. 02/20/2024 2:08 PM CDT 02/20/2024 Narrative [facility] - 02/25/2024 8:16 AM CDT Performed at: [address] [place], [place] [id number] Fire Prevention Specialist: Sara Vigil MD, Phone: [phone] Performed at: - [facility] [address] [id number] Fire Prevention Specialist: Sara Vigil MD, Phone: [phone] Specimen Comment: Source.............Cervix;Endocervix Specimen Comment: No. of containers..01 ThinPrep Vial us Carmen Donnelly NP LAB CYTOLOGY ORDERABLES Final Re sult [facility] - 01 [facility] 02 * SCREENING MAMMOGRAM BILATERAL W RUBA (02/13/2024 1:22 PM CDT) Anatomical Region Laterality Modality Breast Bilateral Mammography 02/19/2024 12:5 4 PM CDT Impressions 02/19/2024 12:54 PM CDT There is no mammographic evidence of malignancy. A 1 year screening mammogram is recommended. BI-RADS: 1 - Negative. The patient has been or will be contacted. The patient will be entered into a reminder system with a target due date of 1 year for her next mammogram. Electronically signed by: Luecro Buck M.D. Narrative 02/19/2024 12:54 PM CDT EXAMINATION: SCREENING MAMMOGRAM BILATERAL W RUBA ORDERING HEALTHCARE PROVIDER: FADI PLAZA HISTORY: Routine screening mammography. COMPARISON: 08/03/2019 TECHNIQUE: CC and MLO views of the bilateral breasts were obtained with digital technique using breast tomosynthesis with C view. Computer aided detection was utilized. FINDINGS: DENSITY: There are scattered fibroglandular elements in the bilateral breasts. BREASTS: There are no suspicious masses, suspicious calcifications, or other suspicious findings in either breast. There has been no suspicious interval change. us Fadi Plaza MD IMG MAMMO PROCEDURES Final Result * COLONOSCOPY (07/29/2020 9:54 AM CHIEF PETROLEUM ENGINEER) Anatomical Region Laterality Modality Other Narrative Procedure Note Skyler Babb MD - 07/29/2020 9:54 AM CST [facility] Patient Name: Gloria Langley Procedure Date: 07/29/2020 9:54 AM Date of : 1975 Admit Type: Outpatient Age: 45 Gender: Female Attending MD: Skyler Babb M.D. Room: [facility] ENDOSCOPY ROOM 1 Note Status: Finalized Patient Profile: This is a 45 year old female. Patient had recent complaints with diarrhea and CT scan couple monthsago showed changes of colitis. Patient has history of polyps in the past. Clinically she is doing well at this time. Colonoscopy for evaluation Procedure: Colonoscopy Indications: Last colonoscopy: June 2018, Follow-up ofcolitis Referring MD: Arron Roman Providers: Skyler Babb M.D. Impression: - Two 2 to 4 mm polyps in the cecum, removed with a jumbo cold forceps. Resected and retrieved. - One 3 mm polyp in the descending colon, removedwith a jumbo cold forceps. Resected and retrieved. - The entire examined colon is normal otherwise withno inflammatory changes. Biopsied. - Internal hemorrhoids. Recommendation: - Await pathology results. - Repeat colonoscopy in 3 - 5 years for screening purposes. - Continue present medications. - No contraindication from GI point to proceed withany surgery. Medicines: Monitored Anesthesia Care Complications: No immediate complications. Estimated Blood Loss: Estimated blood loss: none. Procedure: Pre-Anesthesia Assessment: - Prior to the procedure, a History and Physical was performed, and patient medications and allergieswere reviewed. The patient's tolerance of previous anesthesia was also reviewed. The risks and benefitsof the procedure and the sedation options and riskswere discussed with the patient. All questions were answered, and informed consent was obtained. Prior Anticoagulants: The patient has taken no previous anticoagulant or antiplatelet agents. ASA Grade Assessment: II - A patient with mild systemicdisease. After reviewing the risks and benefits, the patientwas deemed in satisfactory condition to undergo the procedure. The benefits, risks and alternatives of theprocedure and sedation were discussed and informed consent was obtained. All questions were answered. Please referto the signed informed consent document in the medical record. The scope was passed under direct vision.The Pediatric Colonoscope PCF-H190L [id number] was introduced through the anus and advanced to the the cecum, identified by appendiceal orifice andileocecal valve. Bowel prep was administered using a splitdose. The bowel preparation used was Miralax. The bowel preparation used was bisacodyl tablets. The qualityof the bowel preparation was excellent. Findings: The perianal and digital rectal examinations were normal. The ileum appeared normal. Two sessile polyps were found in the cecum. The polyps were 2 to 4 mmin size. These polyps were removed with a jumbo cold forceps. Resectionand retrieval were complete. A 3 mm polyp was found in the descending colon. The polyp wassessile. The polyp was removed with a jumbo cold forceps. Resection andretrieval were complete. The colon (entire examined portion) appeared normal otherwise. No inflammatory changes noted in the colon. Random bBiopsies were taken with a cold forceps for histology. Internal hemorrhoids were found during retroflexion. The hemorrhoids were small. Electronically signed by Skyler Babb M.D. Skyler Babb M.D. 07/29/2020 10:24:43 AM Number of Addenda: 0 Note Initiated On: 07/29/2020 9:54 AM Procedure Code(s): --- Professional --- 88297, Colonoscopy, flexible; with biopsy, single or multiple Diagnosis Code(s): --- Professional --- K64.8, Other hemorrhoids D12.0, Benign neoplasm of cecum D12.4, Benign neoplasm of descending colon K52.9, Noninfective gastroenteritis and colitis, unspecified CPT copyright 2017 [employer] [place]. All rights reserved. The codes documented in this report are preliminary and upon nuclear pharmacist reviewmay be revised to meet current compliance requirements. Recognized by the [place] for promoting quality in endoscopy Skyler Babb MD ENDOSCOPY PROCEDURES Final Result from Last 3 Months or Most Recently Relevant to Health Maintenance Insurance [facility] MED[facility] Address: [address] [address] [facility] Address: [facility] [address] [place] [address] Advance Directives For more information, please contact: [phone] * Full Code (Latest Code Status on File) Date Activated Date Inactivated Comments 04/20/2025 2:29 PM 04/21/2025 6:32 PM * Full Code Date Activated Date Inactivated Comments 07/25/2023 9:47 PM 07/28/2023 3:37 PM * Full Code Date Activated Date Inactivated Comments 10/04/2022 8:53 PM 10/10/2022 7:37 PM * Full Code Date Activated Date Inactivated Comments 04/26/2021 2:54 PM 04/28/2021 7:20 PM * Full Code Date Activated Date Inactivated Comments 02/28/2021 11:42 AM 02/28/2021 5:46 PM Care Teams Ward Attendant Relationship Specialty Start Date End Date Fadi Plaza MD [address] [place] [address] PCP - General Family Medicine 12/19/21 Benjy Hernandez MD [address] [place] [address] Referring Physician Hematology and Oncology 06/04/22 Earl Guerra OT Occupational Therapist Occupational Therapy 03/10/25 Cayden Chua MD [address] [place] [address] [address] [address] Surgeon Orthopedic Surgery 04/20/25
--- OUTSIDE RECORDS SUMMARY | 2025-05-27 11:09 | XMS_ITS | Encounter Summary ---
Author Organization [facility] Healthcare Address [address] [place] [address] Care Team Providers Care Case Supervisor Name Role Phone Fadi Plaza MD Primary Care Provider [phone] Benjy Hernandez MD Unavailable [phone] Earl Guerra OT Unavailable Unavailable Cayden Chua MD Unavailable [phone] Encounter Details Date Type Department Care Team (Late st Contact Info) Description 03/28/2025 Results Follow-Up [facility] Primary Care at [address] [address] Fadi Plaza MD [address] [place] [address] [address] [place] [address] Clinical pathology report Social History Tobacco Use Types Packs/Day Years Used Date Smoking Tobacco: Former Cigarettes 1 17.6 1 - 02/03/2025 Smokeless Tobacco: Never Alcohol Use Standard Drinks/Week Comments Not Currently 0 (1 standard drink = 0.6 oz pur e alcohol) [facility] Utilities Answer Date Recorded In the past 12 months has [employer] electric, gas, oil, or water company threatened to shut off services in your [...] 07/26/2023 How often do you attend chur ch or oriental orthodox services? Never 07/26/2023 Do you belong to any clubs o r organizations such as mu-ism groups, unions, fraternal or athletic groups, or school groups? No 07/26/2023 How often do you attend meet ings of the clubs or organizations you belong to? Never 07/26/2023 Marital Status Not on file 07/26/2023 AUDIT-C Answer Date Recorded Q1: How often do you have a drink containing alcohol? Never 03/16/2025 Q2: How many drinks containi ng alcohol do you have on a typical day when you are drinking? Patient does not drink Q3: How often do you have si x or more drinks on one occasion? Never 03/16/2025 Overall Financial Resource Strain (CARDIA) Answe r Date Recorded How hard is it for you to pa y for the very basics like food, housing, medical care, and heating? Not hard at all 07/26/2023 PHQ-2 Answer Date Recorded PHQ-2 Total Score (If total score is 3 or more points, staff should administer the PHQ-9) 4 12/29/2024 Hunger Vital Sign Answer Date Recorded Within the past 12 months, y ou worried that your food would run out before you got the money to buy more. Never true 07/26/20 23 Within the past 12 months, t he [...] making you feel afraid or unsafe? Denies 07/25/2023 Education Answer Date Recorded What is the highest level of school you have completed or the highest degree you have received? High school graduate 07/26/2023 Comments No Sex and Gender Information Value Date Recorded Sex Assigned at Not on file Legal Sex Female 11:49 AM CDT Gender Identity Not on file Sexual Orientation Not on file documented as of this encounter Plan of Treatment Not on file documented as of this encounter Visit Diagnoses Not on filedocumented in this encounter Care Teams Case Supervisor Relationship Specialty Start Date End Date Fadi Plaza MD [address] [place] [address] PCP - General Family Medicine 12/19/21 Benjy Hernandez MD [address] [place] [address] [address] [place] [address] Referring Physician Hematology and Oncology 06/04/22 Earl Guerra, OT Occupational Therapist Occupational Therapy 03/10/25 Cayden Chua MD [address] [place] [address] DR LEYVA [facility] [address] [place] [address] Surgeon Orthopedic Surgery 04/20/25 documented as of this encounter
--- OUTSIDE RECORDS SUMMARY | 2025-05-27 11:09 | XMS_ITS | Encounter Summary ---
Author Organization [facility] Healthcare Address [address] [place] [address] Care Team Providers Care Help Desk Agent Name Role Phone Fadi Plaza MD Primary Care Provider [phone] Benjy Hernandez MD Unavailable [phone] Earl Guerra OT Unavailable Unavailable Cayden Chua MD Unavailable [phone] Reason for Visit * Reason Comments [facility] Quality Statin Gap in Care Chart Review Missed/did not show for 05/26/2025 Family Medicine appointment. Appointment not rescheduled at the time of this encounter. Recommendation to consider Rosuvastatin 5mg daily remains on appointment note as a reminder, if rescheduled. No additional action warranted at this time. [facility] Clinical Pharmacist team to follow-up if warranted. Encounter Details Date Type Department Care Team (Late st Contact Info) Description 05/26/2025 [facility] Clinical Pharmacist [facility] Accountable Care Organization [address] [place] [address] [place] [address] Katerina Lemus RPh [address] [place] [address] [address] [place] [address] Social History Tobacco Use Types Packs/Day Years Used Date Smoking Tobacco: Former Cigarettes 1 17.6 1 - 02/03/2025 Smokeless Tobacco: Never Alcohol Use Standard Drinks/Week Comments Not Currently 0 (1 standard drink = 0.6 oz pur e alcohol) [facility] Utilities Answer Date Recorded In the past 12 months has [employer], gas, oil, or water company threatened to [...] often do you attend chur ch or adventism services? Never 07/26/2023 Do you belong to any clubs o r organizations such as scientology groups, unions, fraternal or athletic groups, or [...] place to sleep or slept in a senior living (including now)? No 07/26/2023 PHQ-9 Answer Date [...] on filedocumented in this encounter Care Teams Help Desk Agent Relationship Specialty Start Date End Date Fadi Plaza MD [address] [place] [address] PCP - General Family Medicine 12/19/21 Benjy Hernandez MD [address] [place] [address] Referring Physician Hematology and Oncology 06/04/22 Earl Guerra OT Occupational Therapist Occupational Therapy 03/10/25 Cayden Chua MD [address] [facility] [address] [address] Surgeon Orthopedic Surgery 04/20/25 documented as of this encounter
--- OUTSIDE RECORDS SUMMARY | 2025-05-27 11:09 | XMS_ITS | Encounter Summary ---
Author Organization [facility] Healthcare Address [address] [place] [address] Care Team Providers Care Disbursing Agent Name Role Phone Margot Corbett NP Primary Care Provider Fadi Plaza MD Primary Care Provider [phone] Benjy Hernandez MD Unavailable [phone] Earl Guerra OT Unavailable Unavailable Cayden Chua MD Unavailable [phone] Encounter Details Date Type Department Care Team (Late st Contact Info) Description 03/28/2020 Telephone [facility] [address] [place] [address] Osiris Mary, RT Social History Tobacco Use Types Packs/Day Years Used Date Smoking Tobacco: Every Day Smokeless Tobacco: Never Alcohol Use Standard Drinks/Week Comments Yes 0 (1 standard drink = 0.6 oz pur e alcohol) Comments Unknown Sex and Gender Information Value Date Recorded Sex Assigned at Not on file Legal Sex Female 11:49 AM CDT Gender Identity Not on file Sexual Orientation Not on file documented as of this encounter Plan of Treatment Not on file documented as of this encounter Visit Diagnoses Not on filedocumented in this encounter Additional Health Concerns Infection Onset Date Last Indicated Resolved Time COVID: Suspected 07/25/2023 07/25/2023 07/25/2023 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
--- OUTSIDE RECORDS SUMMARY | 2025-05-27 11:09 | XMS_ITS | Clinical Summary ---
Author Organization [facility] Address [address] [place] [address] Phone Care Team Providers Care Evaporator Operator Molasses Name Role Phone Aric Margot Christian SMITH Primary Care Provider [phone] Allergies Active Allergy Reactions Criticality Noted Date Comments Ceftriaxone Swelling 10/12/2021 Medications liothyronine (CYTOMEL) 25 MCG Tablet daily. 07/14/2019 Active hydroCHLOROthia zide 25 MG Tablet Take 12.5 mg by mouth daily. 03/14/2018 Active sertraline (ZOLOFT) 50 MG Tablet Take 50 mg by mouth daily. 01/13/2021 Active Norethindrone Acetate 5 MG Tablet daily. 11/06/2019 Active DULoxetine (CYMBALTA) [address] Particles Take by mouth. 06/08/2019 Active traZODone (DESYREL) 150 MG Tablet TK 1 T PO QD HS 06/30/2018 Active pregabalin (LYRICA) 150 MG Capsule TK 1 C PO BID 10/16/2019 Activ e Vit-Fe Fumarate-FA ( VITAMIN PO) Take by mouth. Active metroNIDAZOLE (Flagyl) 500 MG Tablet Take 1 Tablet by mouth 3 times daily. 30 Tablet 12/12/2021 Active ondansetron (ZOFRAN) 4 MG Tablet Take 1 Tablet by mouth every 8 hours as needed for Nausea - 1st line. 10 Tablet 12/12/2021 Active HYDROcodone-radha taminophen (NORCO) 5-325 MG TabletIndicatio ns:Colitis Take 1 Tablet by mouth every 8 hours as needed for Moderate or more severe pain. 12 Tablet 12/12/2021 Active potassium chloride SA (KLORCON M) 20 MEQ Tablet Controlled Release Take 1 Tablet by mouth daily. 21 Tablet 12/18/2021 Active Active Problems Problem Noted Date Diagnosed Date Leukemoid reaction 06/04/2021 Thrombocytosis 06/04/2021 Morbid obesity 06/04/2021 Family History Medical History Relation Name Comments Cancer Father Stroke Father Cancer Maternal Grandmother Diabetes Mother Hypertension Mother Stroke Paternal Grandmother Relation Name Status Comments Father Maternal Grandmother Mother Alive Paternal Grandmother Social History Tobacco Use Types Packs/Day Years Used Date Smoking Tobacco: Former Cigarettes 1 7 Smokeless Tobacco: Never Alcohol Use Standard Drinks/Week Comments Never 0 (1 standard drink = 0.6 oz pur e alcohol) Comments No Sex and Gender Information Value Date Recorded Sex Assigned at Not on file Legal Sex Female 1:09 PM CDT Gender Identity Not on file Sexual Orientation Not on file Last Filed Vital Signs Vital Sign Reading Time Taken Comments Blood Pressure 122/88 12/18/2021 11:35 AM CDT Pulse 84 12/18/2021 11:35 AM CDT Temperature 36.7 C (98 F) 12/18/2021 11:35 AM CDT Respiratory Rate 20 12/18/2021 11:35 AM CDT Oxygen Saturation 98% 12/18/2021 11:35 AM CDT Inhaled Oxygen Concentration - - Weight 72.2 kg (159 lb 3.2 oz) 12/18/2021 11:35 AM CDT Height 152.4 cm (5') 12/18/2021 11:35 AM CDT Body Mass Index 31.09 12/18/2021 11:35 AM CDT Plan of Treatment Health Maintenance Due Date Last Done Comments Hepatitis C Virus (HCV) Screening 1975 Hepatitis B Immunization (1 of 3 - 19+ 3-dose series) 1992 Pap Smear 1994 Cervical Cancer Screening (CCS) 2003 HPV/Cotest 2003 Cologuard 2018 Immunochemical Fecal Occult Blood 2018 Pneumococcal Immunization (50+ years) (1 of 1 - PCV) 2023 Zoster Immunization (1 of 2) 2023 Influenza Immunization (#1) 05/10/202508/09, 06/04/2018, 06/04/2018, Additional history exists SARS-COV-2 Immunization ( season) 2025 03/10/2021, 02/17/2021 Colonoscopy 07/29/2030 07/29/2020 Colorectal Cancer Screening 07/29/2030 Respiratory Syncytial Virus (RSV) Immunization (Adult) (1 - 1-dose 75+ series) 2048 DTaP/Tdap/Td Immunization Discontinued 07/08/2020 TdaP Immunization Completed 07/08/2020 Human Papillomavirus (HPV) Immunization Aged Out No longer eligible based on patient's age to complete this topic Meningococcal Immunization (ACWY) Aged Out No longer eligible based on patient's age to complete this topic Rotavirus Immunization Aged Out No lo nger eligible based on patient's age to complete this topic Insurance MEDICAID [place] MEDICARE Care Teams Evaporator Operator Molasses Relationship Specialty Start Date End Date Margot Corbett APRN [address] [place] [address] PCP - General Certified Nurse Practitioner 04/03/21
--- NOTE | 2025-05-27 11:11 | ED.URI ---
HPI - URI/Sore Throat General Chief Complaint: Upper Respiratory Infection Stated Complaint: sore throat body aches Time Seen by Provider: 05/27/25 10:59 Source: patient and family Mode of arrival: ambulatory Limitations: no limitations History of Present Illness HPI Narrative: this is a 50-year-old female with some no significant past medical history presents with sore throat mild congestion with no cough no shortness of breath no audible wheezing no fever chills no nausea vomiting. MD elicited complaint: sore throat Onset (ago): day(s) Consistency: constant Severity: moderate Description of mucous: clear Related Data Home Medications ?Medication ?Instructions ?Recorded ?Confirmed ?Last Taken ?Type duloxetine 60 mg capsule,delayed 60 mg PO BID 07/03/21 01/02/23 Unknown History release liothyronine 25 mcg tablet 25 mcg PO DAILY 07/03/21 01/02/23 Unknown History norethindrone acetate 5 mg tablet 5 mg PO DAILY 07/03/21 01/02/23 Unknown History pregabalin 150 mg capsule 150 mg PO BID 07/03/21 01/02/23 Unknown History sertraline 50 mg tablet 50 mg PO HS 07/03/21 01/02/23 Unknown History trazodone 150 mg tablet 150 mg PO HS 07/03/21 01/02/23 Unknown History potassium chloride 10 mEq 10 meq PO DAILY 01/02/23 01/02/23 Unknown History tablet,extended release Allergies Allergy/AdvReac Type Severity Reaction Status Date / Time ceftriaxone Allergy Severe Anaphylactic Verified 01/02/23 08:10 Shock Cephalosporins Allergy Mild Hives / Verified 01/02/23 08:10 Red Face Penicillins Allergy Mild Muscle Verified 01/02/23 08:10 Spasms Bee Venom Allergy Intermediate Dyspnea / Uncoded 12/12/22 10:34 SOB Sulfa Drugs Allergy Intermediate Other Uncoded 12/12/22 10:34 Wasp Venom Allergy Intermediate Dyspnea / Uncoded 12/12/22 10:34 SOB Review of Systems Review of Systems: All systems reviewed & are unremarkable except as noted in HPI and below PMFSH Past Medical History Medical History Hypertension Hypothyroidism Surgical History Surgical History H/O cardiac catheterization S/P gastric sleeve procedure H/O knee surgery History of back surgery Social History Social History Smoking status: Current every day smoker Living arrangements: with family Exam Const: General: healthy appearing and no acute distress Nutritional Appearance: well nourished HENMT: Head: normal to inspection Eyes: Conjunctivae: conjunctivae normal Pupils: Equal, round and reactive pupils present EOM: EOMs intact bilaterally Neck: Neck: normal visual inspection Chest: Chest palpation & inspection: normal inspection of the chest Resp: Effort & Inspection: normal respiratory effort Auscultation: clear to auscultation bilaterally Cardio: Rate: regular rate Rhythm: regular rhythm GI: GI Palp: Yes Soft to palpation Auscultation: normal bowel sounds Skin: General skin exam: normal color Rashes: no rashes Course Course Emergency Course: Patient with positive strep COVID RSV influenza negative send antibiotics the patient's local pharmacy. Vital Signs Vital signs: Vital Signs Temperature 36.8 C 05/27/25 10:42 Pulse Rate 92 05/27/25 10:42 Respiratory Rate 16 05/27/25 10:42 Blood Pressure 136/83 05/27/25 10:42 Pulse Oximetry 98 05/27/25 10:42 Oxygen Delivery Room Air 05/27/25 10:42 Temperature 36.8 C 05/27/25 10:42 Pulse Rate 92 05/27/25 10:42 Respiratory Rate 16 05/27/25 10:42 Blood Pressure 136/83 05/27/25 10:42 Pulse Oximetry 98 05/27/25 10:42 Oxygen Delivery Room Air 05/27/25 10:42 MDM - URI/Sore Throat Lab Data Labs: Lab Results 05/27/25 Range/Units 10:39 Influenza A (RT-PCR) Pending Influenza B (RT-PCR) Pending RSV (RT-PCR) Pending SARS-CoV-2 RNA (RT-PCR) Pending Group A Strep (PCR) Detected A (Negative) Critical Care Time Critical Care Time Critical Care Time: No Discharge Plan Discharge Clinical Impression: Strep throat Patient Disposition: Home Condition: Stable Instructions: Antibiotic Form, Strep Throat (ED) Additional Instructions: advised patient to take medication as prescribed and to follow with primary physician if symptoms persist or worsen. Can take Tylenol or Motrin as needed. Patient Language: Montenegrin Prescriptions: New azithromycin [Zithromax Z-Long] 250 mg tablet See Rx Instructions .ROUTE .COMPLEX Qty: 6 0RF Rx Instructions: For 250 mg dose pack: take 500 mg today (day 1), then 250 mg for 4 days (days 2-5) No Action liothyronine 25 mcg tablet 25 mcg PO DAILY Rx Instructions: 1/2 tablet in afternoon trazodone 150 mg tablet 150 mg PO HS norethindrone acetate 5 mg tablet 5 mg PO DAILY sertraline 50 mg tablet 50 mg PO HS duloxetine 60 mg capsule,delayed release(DR/EC) 60 mg PO BID pregabalin 150 mg capsule 150 mg PO BID potassium chloride 10 mEq tablet extended release 10 meq PO DAILY diclofenac sodium 50 mg tablet,delayed release (DR/EC) 50 mg PO Q12H PRN (Reason: pain) Qty: 20 0RF Follow-up/Referrals: Mela,Fadi David MD [Primary Care Provider, Unknown]
[2025-05-27 11:20] LABS: Influenza A QL RT-PCR Negative (Negative); Influenza B QL RT-PCR Negative (Negative); RSV RNA, RT-PCR Negative (Negative); SARS-CoV-2 RNA PCR Negative (Negative)
[2025-05-27 11:40] VITALS: BP 136/83; PULSE 92; RESP 16; TEMP 36.8; O2SAT 98
--- OUTSIDE RECORDS SUMMARY | 2025-05-27 11:48 | XMS_ITS | Encounter Summary ---
Author Organization [facility] Healthcare Address [address] [place] [address] Care Team Providers Care District Administrative Assistant Name Role Phone Margot Corbett NP Primary Care Provider [phone] Fadi Plaza MD Primary Care Provider [phone] Benjy Hernandez MD Unavailable [phone] Earl Guerra OT Unavailable Unavailable Cayden Chua MD Unavailable [phone] Encounter Details Date Type Department Care Team (Late st Contact Info) Description 03/28/2020 Telephone [facility] [address] [place] [address] Osiris Mary, RT Social History Tobacco Use [...] COVID: Suspected 07/25/2023 07/25/2023 07/25/2023 8:02 PM EVENT MARKETING MANAGER documented as of this encounter Care Teams District Administrative Assistant Relationship Specialty Start Date End Date Margot Corbett NP [address] [place] [address] PCP - General 03/26/19 12/18/21 Fadi Plaza MD [address] [place] [address] PCP - General Family Medicine 12/19/21 Benjy Hernandez MD [address] [address] Referring Physician Hematology and Oncology 06/04/22 Earl Guerra OT Occupational Therapist Occupational Therapy 03/10/25 Cayden Chua MD [address] [place] [address] [address] [address] Surgeon Orthopedic Surgery 04/20/25 documented as of this encounter
--- OUTSIDE RECORDS SUMMARY | 2025-05-27 11:48 | XMS_ITS | Encounter Summary ---
Author Organization [facility] Healthcare Address [address] [place] [address] Care Team Providers Care Inspector Electromechanical Name Role Phone Fadi Plaza MD Primary Care Provider [phone] Benjy Hernandez MD Unavailable [phone] Earl Guerra OT Unavailable Unavailable Cayden Chua MD Unavailable [phone] Encounter Details Date Type Department Care Team (Late st Contact Info) Description 03/28/2025 Results Follow-Up [facility] Primary Care at [address] [address] Fadi Plaza MD [address] [place] [address] [address] [place] [address] Clinical pathology report Social History Tobacco Use Types Packs/Day Years Used Date Smoking Tobacco: Former Cigarettes 1 17.6 1 - 02/03/2025 Smokeless Tobacco: Never Alcohol Use Standard Drinks/Week Comments Not Currently 0 (1 standard drink = 0.6 oz pur e alcohol) [facility] Utilities Answer Date Recorded In the past 12 months has [employer], gas, oil, or water company threatened [...] often do you attend chur ch or nondenominational services? Never 07/26/2023 Do you belong to any clubs o r organizations such as lutheran groups, unions, fraternal or athletic groups, or [...] place to sleep or slept in a assisted (including now)? No 07/26/2023 PHQ-9 Answer Date [...] on filedocumented in this encounter Care Teams Inspector Electromechanical Relationship Specialty Start Date End Date Fadi Plaza MD [address] [place] [address] PCP - General Family Medicine 12/19/21 Benjy Hernandez MD [address] [place] [address] [address] [place] [address] Referring Physician Hematology and Oncology 06/04/22 Earl Guerra, OT Occupational Therapist Occupational Therapy 03/10/25 Cayden Chua MD [address] [place] [address] [facility] [address] [place] [address] Surgeon Orthopedic Surgery 04/20/25 documented as of this encounter
--- OUTSIDE RECORDS SUMMARY | 2025-05-27 11:48 | XMS_ITS | Encounter Summary ---
Author Organization [facility] Address [address] [place] [address] Care Team Providers Care Head Sulfide Operator Name Role Phone Margot Corbett [facility] Primary Care Provider [phone] Rupert Oropeza MD Unavailable Unavail able Fadi Plaza MD Primary Care Provider [phone] Encounter Details Date Type Department Care Team (Late st Contact Info) Description 02/14/2019 Abstract [facility] CONVERSION [address] [place] [address] , Generic Conversion, Social History Tobacco Use Types Packs/Day Years Used Date Smoking Tobacco: Former Cigarettes Smokeless Tobacco: Never Alcohol Use Standard Drinks/Week Comments No 0 (1 standard drink = 0.6 oz pur e alcohol) history of alcohol abuse AUDIT-C Answer Date Recorded Frequency of Alcohol Consumption Never 01/02/2019 Average Number of Drinks Not on file 019 Frequency of Binge Drinking Not on file 12/09 Comments Unknown Sex and Gender Information Value Date Recorded Sex Assigned at Not on file Legal Sex Female 7:53 PM CDT Gender Identity Not on file Sexual Orientation Not on file 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 file Not on file Not on file documented as of this encounter Plan of Treatment Not on file documented as of this encounter Visit Diagnoses Not on filedocumented in this encounter Care Teams Head Sulfide Operator Relationship Specialty Start Date End Date Margot Corbett FNP-BC [address] [place] [address] PCP - General NURSE PRACTITIONER 09/18/18 12/07/23 Fadi Plaza MD [address] [place] [address] [address] [place] [address] PCP - General FAMILY PRACTICE 12/08/23 Rupert Oropeza MD [address] [place] [address] CARDIOVASCULAR DISEASE 12/22/18 documented as of this encounter
--- OUTSIDE RECORDS SUMMARY | 2025-05-27 11:48 | XMS_ITS | Encounter Summary ---
Author Organization [facility] Healthcare Address [address] [place] [address] Care Team Providers Care Price Checker Name Role Phone Fadi Plaza MD Primary Care Provider [phone] Benjy Hernandez MD Unavailable [phone] Earl Guerra OT Unavailable Unavailable Cayden Chua MD Unavailable [phone] Reason for Visit * Reason Comments [facility] Quality Statin Gap in Care Chart Review Missed/did not show for 05/26/2025 Family Medicine appointment. Appointment not rescheduled at the time of this encounter. Recommendation to consider Rosuvastatin 5mg daily remains on appointment note as a reminder, if rescheduled. No additional action warranted at this time. [facility] Clinical Pharmacist team to follow-up if warranted. Encounter Details Date Type Department Care Team (Late st Contact Info) Description 05/26/2025 [facility] Clinical Pharmacist [facility] Accountable Care Organization [address] [place] [address] [place] [address] Katerina Lemus RPh [address] [place] [address] [address] [place] [address] Social History Tobacco Use Types Packs/Day Years Used Date Smoking Tobacco: Former Cigarettes 1 17.6 1 - 02/03/2025 Smokeless Tobacco: Never Alcohol Use Standard Drinks/Week Comments Not Currently 0 (1 standard drink = 0.6 oz pur e alcohol) [facility] Utilities Answer Date Recorded In the past 12 months has [employer], gas, oil, or water company threatened to [...] often do you attend chur ch or mandaen services? Never 07/26/2023 Do you belong to any clubs o r organizations such as protestant groups, unions, fraternal or athletic groups, or [...] on filedocumented in this encounter Care Teams Price Checker Relationship Specialty Start Date End Date Fadi Plaza MD [address] [place] [address] PCP - General Family Medicine 12/19/21 Benjy Hernandez MD [address] [place] [address] Referring Physician Hematology and Oncology 06/04/22 Earl Guerra OT Occupational Therapist Occupational Therapy 03/10/25 Cayden Chua MD [address] [facility] [address] [address] Surgeon Orthopedic Surgery 04/20/25 documented as of this encounter
--- OUTSIDE RECORDS SUMMARY | 2025-05-27 11:48 | XMS_ITS | Clinical Summary ---
Author Organization [facility] Address [address] [place] [address] Phone Care Team Providers Care Steel Pan Form Placing Supervisor Name Role Phone Aric Margot Christian SMITH Primary Care Provider [phone] Allergies Active Allergy Reactions Criticality Noted Date [...] topic Insurance MEDICAID [place] MED[place]ARE Care Teams Steel Pan Form Placing Supervisor Relationship Specialty Start Date End Date Margot Corbett APRN [address] [place] [address] PCP - General Certified Nurse Practitioner 04/03/21
--- OUTSIDE RECORDS SUMMARY | 2025-05-27 11:48 | XMS_ITS | Clinical Summary ---
Author Organization [facility] Address [address] [place] [address] Care Team Providers Care Systems Engineer Name Role Phone Fadi Plaza MD Primary Care Provider + [phone] Allergies Active Allergy Reactions Criticality Noted Date Comments Bee Venom Shortness of Breath,Other (see comment) High 01/02/2019 Breathing problems Ceftriaxone Anaphylaxis High 09/24/2014 Tongue swells & difficulty breathing Sulfa Antibiotics Other (see comment) High 7 Messes up my kidneys Wasp Venom Shortness of Breath,Other (see comment) High 01/02/2019 Breathing problems Wasp Venom Protein Swelling Medium 11/09/2019 Medications hydrochlorothia zide 25 MG tabletIndicatio ns:Hypertension Take 25 mg by mouth every morning. 8 Active traZODone 150 MG tabletIndicatio ns:sleep Take 150 mg by mouth nightly. 8 Active duloxetine 30 MG capsuleIndicati ons:Depression, TAKE 2 CAPS IN AM 1 CAP IN PM Take by mouth 2 (two) times daily. Indications: Depression, TAKE 2 CAPS IN AM 1 CAP IN PM in AM 9 Active liothyronine 5 MCG TabIndications: Hypothyroidism Take 20 mcg by mouth 2 (two) times daily. 20 mcg bid Active albuterol sulfate HFA 108 (90 Base) MCG/ACT inhalerIndicati ons:asthma Inhale 3-4 puffs into the lungs 4 (four) times daily. Active vitamin C 250 MG tabletIndicatio ns:supplement Take 250 mg by mouth 2 (two) times a day. 9 Active ferrous sulfate, 65 mg elemental, 325 (65 FE) MG tabletIndicatio ns:supplement Take 325 mg by mouth 2 (two) times a day. 9 Active topiramate 100 MG tabletIndicatio ns:migraines Take 100 mg by mouth 2 (two) times daily. 9 Active pregabalin 100 MG capsuleIndicati ons:pain Take 100 mg by mouth 2 (two) times daily. Active omeprazole 20 MG capsuleIndicati ons:GERD Take 20 mg by mouth nightly at bedtime. Acid reflux 0 9 Active Loratadine-Pseu doephedrine (CLARITIN-D 24 HOUR OR)Indications: Allergies Take 1 tablet by mouth daily as needed (allergies). 9 Active duloxetine 60 MG capsule 9 Active liothyronine 25 MCG tablet TK 1 T PO QAM AND SS T QAFT 1 9 Active acetaminophen-c odeine 300-30 MG tablet TK 1 T PO Q 6 HOURS PRF PAIN 9 Active amoxicillin 500 MG capsule TAKE 1 CAPSULE BY MOUTH EVERY 8 HOURS UNTIL GONE 9 Active cyclobenzaprine 10 MG tablet Take 10 mg by mouth 3 (three) times daily as needed. FOR MUSCLE SPASMS 0 Active DOK 100 MG capsule Take 100 mg by mouth 2 (two) times daily. 0 Active famotidine 20 MG tablet Take 20 mg by mouth daily. 0 Active metFORMIN 500 MG tablet TK 1 T PO D WF 0 Active metFORMIN 500 MG tablet 0 Active methylPREDNISol one, FELECIA, 4 MG tablet TK UTD 0 Active norethindrone 5 MG tablet TK 1 T PO BID 0 Active norethindrone 5 MG tablet Take 5 mg by mouth 2 (two) times daily. 0 Active duloxetine 60 MG capsule 0 Active liothyronine 25 MCG tablet TK 1 T PO Q MORNING AND 1/2 T IN THE AFTERNOON 0 Active hydrochlorothia zide 25 MG tablet 0 Active omeprazole 20 MG capsule TK 1 C PO QD 30 MIN TO 1 HOUR AC 0 Active pregabalin 150 MG capsule TK 1 C PO BID 0 Active pregabalin 150 MG capsule Take 150 mg by mouth 2 (two) times daily. 0 Active topiramate 100 MG tablet 0 Active traZODone 150 MG tablet TK 1 T PO QD HS 0 Active Active Problems Problem Noted Date Diagnosed Date S/P lumbar spinal fusion 07/08/2019 Lower back pain 05/15/2019 Lumbar degenerative disc disease 04/02/2019 Lumbar foraminal stenosis 04/02/2019 Lumbar radiculopathy 04/02/2019 Neurogenic claudication 04/02/2019 Fatigue, unspecified type 09/19/2018 Low serum cortisol level 09/19/2018 Immunizations Immunization Administration Dates Next Due Influenza Adult (Generic) 06/04/2018,07/18/2017 Tdap (Adacel) 07/08/2020 Family History Medical History Relation Comments Cancer Father Heart Disease Maternal Grandmother Depression Mother Diabetes Mother Hypertension Mother Heart Disease Paternal Grandfather Stroke Paternal Grandfather Heart Disease Paternal Grandmother Stroke Paternal Grandmother Relation Status Comments Father (Age 68) Maternal Grandfather Maternal Grandmother Mother Alive Paternal Grandfather Paternal Grandmother Social History Tobacco Use Types Packs/Day Years Used Date Smoking Tobacco: Former Cigarettes Q uit: 2018 Smokeless Tobacco: Never Alcohol Use Standard Drinks/Week Comments No 0 (1 standard drink = 0.6 oz pur e alcohol) history of alcohol abuse AUDIT-C Answer Date Recorded Frequency of Alcohol Consumption Never 01/02/2019 Average Number of Drinks Not on file 019 Frequency of Binge Drinking Not on file 12/09 Comments No Sex and Gender Information Value Date Recorded Sex Assigned at Not on file Legal Sex Female 7:53 PM CDT Gender Identity Not on file Sexual Orientation Not on file 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 file Not on file Not on file Last Filed Vital Signs Vital Sign Reading Time Taken Comments Blood Pressure 125/88 12/08/2023 9:30 PM CDT Pulse 86 12/08/2023 9:30 PM CDT Temperature 37.1 C (98.7 F) 12/08/2023 6:27 PM CDT Respiratory Rate 22 12/08/2023 9:30 PM CDT Oxygen Saturation 95% 12/08/2023 9:30 PM CDT Inhaled Oxygen Concentration - - Weight 90.7 kg (200 lb) 12/08/2023 6:27 PM CDT Height 152.4 cm (5') 12/08/2023 6:27 PM CDT Body Mass Index 39.06 12/08/2023 6:27 PM CDT Plan of Treatment Health Maintenance Due Date Last Done Comments Colorectal Cancer Screening Colonoscopy (10 Years) 1973 Annual Physical 1976 Hepatitis C 1991 Hepatitis B Vaccines (1 of 3 - 19+ 3-dose series) 1992 Cervical Cancer Screening Pa p with HPV Testing (Age 30 to 64) Every 5 Years 2003 Mammogram Screening 08/03/2021 08/03/2019 Cervical Cancer Screening Pa p Smear (Age 30 to 64) Every 3 Years 06/22/2022 06/22/2019 Cervical Cancer Screening wi th HPV 06/22/2022 Zoster Vaccines (1 of 2) 2023 COVID-19 Vaccine (3 - 2024-2 6 season) 2025 03/10/2021, 02/17/2021 DTaP, Tdap and Td Vaccines ( 2 - Td or Tdap) 07/08/2030 07/08/2020 Pneumococcal Vaccine: 50+ Years Completed 06/04/2022 Meningococcal B Vaccine Aged Out No l onger eligible based on patient's age to complete this topic Meningococcal Vaccine Aged Out No kaylah maci eligible based on patient's age to complete this topic RSV Immunizations Under 20 Months Aged Out No longer eligible b ased on patient's age to complete this topic Medical Devices Implanted Type Area Report Checker Device Identifier Shelf Expiration Date Model / Serial / Lot Tissue Surgiflo 8ml - [id number] Implanted:Qty: 1 on 05/12/2019 by Ramu Morton MD at [facility] N/A: Spine Lumbar [employer] 09/08/2020 [id number] / / [id number] Julian Implanted:Qty: 1 on 05/12/2019 by Ramu Morton MD at [facility] N/A: Spine Lumbar [employer] 11-4050 / / Julian Implanted:Qty: 1 on 05/12/2019 by Ramu Morton MD at [facility] N/A: Spine Lumbar [employer] 11-4055 / / Graft Bone Canc 5ml Chip - [id number] Implanted:Qty: 1 on 05/12/2019 by Ramu Morton MD at [facility] N/A: Spine Lumbar [employer] 07/13/2022 [id number] / [id number] / Screw Implanted:Qty: 2 on 05/12/2019 by Ramu Morton MD at [facility] N/A: Spine Lumbar [employer] 11-4540 / / Locking Screw Implanted:Qty: 4 on 05/12/2019 by Ramu Morton MD at [facility] N/A: Spine Lumbar [employer] 11-4001 / / Screw Implanted:Qty: 1 on 05/12/2019 by Ramu Morton MD at [facility] N/A: Spine Lumbar [employer] 11-4445 / / Screw Implanted:Qty: 1 on 05/12/2019 by Ramu Morton MD at [facility] NA: Spine Lumbar [employer] [id number] / / I Factor Peptide Enhanced Bone Graft Implanted:Qty: 1 on 05/12/2019 by Ramu Morton MD at [facility] N/A: Spine Lumbar 01/06/2022 [id number] / / [id number] Description:Cerapedics Velocity Expandable Interbody Device Posterior Expandable Implant Implanted:Qty: 1 on 05/12/2019 by Ramu Morton MD at [facility] N/A: Spine Lumbar [employer] 02/13/2021 11-2530 / / [id number] Explanted Type Area Report Checker Device Identifier Shelf Expiration Date Model / Serial / Lot Nitinol Guide Wire Explanted:Qty: 4 on 05/12/2019 at [facility] N/A: Spine Lumbar [employer] [id number] / / Needle Bone Biopsy Osteo-Site Explanted:Qty: 2 on 05/12/2019 by Ramu Morton MD at [facility] N/A: Spine Lumbar [employer] DBBN-11-15 .0 / / Procedures Procedure Name Priority Date/Time Associated Diagnosis Comments MG SCREENING W RUBA ELDER DIGI Routine 08/03/2019 8:52 AM MORTARMAN Visit for screening mammogram CYTOPATH CERV/VAG THIN LAYER Routine 06/22/2019 12:14 PM CDT from Last 3 Months or Most Recently Relevant to Health Maintenance Results * MG SCREENING W RUBA ELDER DIGI (08/03/2019 8:52 AM MORTARMAN) Anatomical Region Laterality Modality Breast Bilateral Mammography 08/03/2019 4:41 PM MORTARMAN Impressions 08/03/2019 4:42 PM MORTARMAN IMPRESSION: Moderately dense breasts. No mammographic evidence of malignancy. Recommendation: 1: Routine screening mammogram Bilateral in 1 Year Assessment: ACR BI-RADS Category 2 - Benign. Interpreted By: Harpreet Reynoso, 08/03/2019 4:41 PM Narrative 08/03/2019 4:42 PM MORTARMAN Examination: Digital screening mammogram with CAD. Clinical history: Asymptomatic patient presents for routine screening. Baseline. Comparison: None. Technique: Bilateral digital mammograms. The exam was interpreted with the use of a computer-aided detection (CAD) system. Additional 3-D tomosynthesis images were acquired. Tissue density: The breast tissue is heterogeneously dense. Findings: The breast tissue is heterogeneously dense. The dense tissue may obscure some lesions mammographically. There is minor glandular asymmetry. Benign-appearing calcification and benign-appearing intramammary lymph nodes noted. No suspicious mass, microcalcification or area of architectural distortion can be identified. From a mammographic standpoint, routine followup in one year would seem adequate. us Payal England MD MAMMO Final Result * Cytopath Cerv/Vag Thin Layer (06/22/2019 12:14 PM CDT) THIN PREP PAP [address] [address] Department of Pathology Pathology Report Addendum CERVICAL/VAGINAL PAP SMEAR REPORT Name: GLORIA LANGLEY Age: 9 1975 (Age: 44) Location: [facility] Sex: F Collected Date: 06/22/2019 Hospital #: [id number] Date Received: 06/23/2019 Date Reported: Provider: PAYAL COOPER MD INTERPRETATION CERVICAL/ENDOCERVI GRACIELA: SATISFACTORY FOR EVALUATION. ENDOCERVICAL/TRANS FORMATION ZONE COMPONENT ABSENT. NEGATIVE FOR INTRAEPITHELIAL LESION OR MALIGNANCY. NOTE: HPV DNA TESTING REQUESTED. SPECIMEN SUBMITTED. Electronically Signed Out By YAMILETH Alves (ASCP) Addendum Date Ordered: 06/25/2019 Status: Signed Out Date Complete: 06/25/2019 By: YAMILETH Alves Date Reported: 06/25/2019 Addendum Diagnosis NEGATIVE FOR HIGH RISK HPV. The FDA approved Aptima HPV assay is an in vitro nucleic acid amplification test for the qualitative detection of E6/E7 viral messenger RNA (mRNA) from 14 high-risk types of human papillomavirus (HPV) in cervical specimens. The high-risk HPV types detected by the assay include: 16,18,31,33,35,39, 45,51,52,56,58,59, 66, and 68. Electronically Signed Out By YAMILETH Alves (ASCP) CLINICAL HISTORY Z01.419 PAP HISTORY-UNKNOWN SILVER BUFFER SURGICAL HISTORY-NA ThinPrep Pap Test with HR HPV testing in patient > 30 years requested. Date of Last Menstrual Period: UNKNOWN Menstrual Status: Regular SPECIMEN SUBMITTED CERVICAL/ENDOCERVI GRACIELA Specimen Received:1 Thin Prep Vial, Image Assisted Pap (SMD) Please note: The Pap smear is not a diagnostic test. It is a screening test. Negative results on combined screening (Pap test and HPV-DNA) have a high negative predictive value (99.1-100 percent) for cervical cancer. The pap test is not effective in detecting cervical adenocarcinoma. [facility] 06/22/2019 12:1 4 PM CDT 06/23/2019 12:14 PM CDT Comment:CERVICAL/ENDOCERVICA L Payal England MD PATHOLOGY/CYTOLOGY ORDERABLE S Final Result Performing Organization Address City/State/ZIP Dc de Phone Number [facility] [address] [place] [address], from Last 3 Months or Most Recently Relevant to Health Maintenance Insurance [facility] MEDICAID Advance Directives * Full Code (Latest Code Status on File) Date Activated Date Inactivated Comments 05/13/2019 8:46 AM 05/16/2019 3:49 PM Care Teams Systems Engineer Relationship Specialty Start Date End Date Fadi Plaza MD [address] [place] [address] [address] [place] [address] PCP - General FAMILY PRACTICE 12/08/23
--- OUTSIDE RECORDS SUMMARY | 2025-05-27 11:48 | XMS_ITS | Encounter Summary ---
Author Organization [facility] Address [address] [place] [address] Care Team Providers Care Fast Food Shift Lead Name Role Phone Margot Corbett [facility] Primary Care Provider [phone] Rupert Oropeza MD Unavailable Unavail able Fadi Plaza MD Primary Care Provider + [phone] Encounter Details Date Type Department Care Team (Late st Contact Info) Description 12/23/2018 Abstract [facility] [address] [place] [address] Abstract, Doc [facility] Social History Tobacco Use Types Packs/Day Years Used Date Smoking Tobacco: Former Cigarettes Alcohol Use Standard Drinks/Week Comments Yes 0 (1 standard drink = 0.6 oz pur e alcohol) HX of alcohol abuse Comments Unknown Sex and Gender Information Value Date Recorded Sex Assigned at Not on file Legal Sex Female 7:53 PM CDT Gender Identity Not on file Sexual Orientation Not on file documented as of this encounter Plan of Treatment Not on file documented as of this encounter Visit Diagnoses Not on filedocumented in this encounter Care Teams Fast Food Shift Lead Relationship Specialty Start Date End Date Margot Corbett [facility] [address] [place] [address] PCP - General NURSE PRACTITIONER 09/18/18 12/07/23 Fadi Plaza MD [address] [place] [address] [address] [place] [address] PCP - General FAMILY PRACTICE 12/08/23 Rupert Oropeza MD [address] [place] [address] CARDIOVASCULAR DISEASE 12/22/18 documented as of this encounter
--- OUTSIDE RECORDS SUMMARY | 2025-05-27 11:48 | XMS_ITS | Encounter Summary ---
Author Organization [facility] Address [address] [place] [address] Care Team Providers Care Car Designer Name Role Phone Margot Corbett [facility] Primary Care Provider [phone] Rupert Oropeza MD Unavailable Unavail able Fadi Plaza MD Primary Care Provider + [phone] Encounter Details Date Type Department Care Team (Late st Contact Info) Description 01/01/2019 Abstract [facility] [address] [place] [phone] Abstract, Doc [facility] Social History Tobacco Use Types Packs/Day Years Used Date Smoking Tobacco: Every Day Cigarettes Alcohol Use Standard Drinks/Week Comments Yes 0 (1 standard drink = 0.6 oz pur e alcohol) HX of alcohol abuse AUDIT-C Answer Date Recorded [...] on file documented as of this encounter Functional Status documented as of this encounter Plan of Treatment Not on file documented as of this encounter Visit Diagnoses Not on filedocumented in this encounter Care Teams Car Designer Relationship Specialty Start Date End Date [facility] [address] [place] [address] PCP - General NURSE PRACTITIONER 09/18/18 12/07/23 Fadi Plaza MD [address] [facility] [address] [place] [address] PCP - General FAMILY PRACTICE 12/08/23 Rupert Oropeza MD [address] [place] [address] CARDIOVASCULAR DISEASE 12/22/18 documented as of this encounter
--- OUTSIDE RECORDS SUMMARY | 2025-05-27 11:49 | XMS_ITS | Clinical Summary ---
Author Organization [facility] Address [address] [place] [address] Care Team Providers Care Smoke Eater Name Role Phone Fadi Plaza MD Primary Care Provider [phone] Benjy Hernandez MD Unavailable [phone] Earl Guerra OT Unavailable Unavailable Cayden Chua MD Unavailable [phone] Allergies Active Allergy Reactions Criticality Noted Date [...] 09/17/2023 Assessment & Plan (07/12/2024 6:56 PM ENTRY LEVEL LAB TECHNICIAN): Counseled on diet and exercise Start oral metformin to help insulin resistance Assessment & Plan (09/17/2023 2:53 PM ENTRY LEVEL LAB TECHNICIAN): Last A1c 6.1% Counseled on diet and exercise Recheck hemoglobin A1c Hyponatremia 07/26/2023 Metabolic alkalosis 07/26/2023 Morbid (severe) obesity due to excess calories 0 03/21/2023 Assessment & Plan (12/24/2023 1:23 PM CDT): BMI Follow-up includes: nutrition counseling, exercise counseling, and education provided. 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 Complications and discharge plan have been noted, reviewed. Post-discharge testing has been ordered. Assessment & Plan (10/20/2022 1:13 PM ENTRY LEVEL LAB TECHNICIAN): I have reviewed the hospital record, medications, [...] 10/04/2022 Assessment & Plan (07/12/2024 6:56 PM ENTRY LEVEL LAB TECHNICIAN): Chronic, not at goal Adjusted potassium supplementation Recheck potassium levels Assessment & Plan (09/17/2023 2:53 PM ENTRY LEVEL LAB TECHNICIAN): Patient currently on potassium supplements Recheck potassium level today Also include renin and aldosterone Assessment & Plan (11/13/2022 12:11 PM ENTRY LEVEL LAB TECHNICIAN): Rechecking level Continues daily K supplement Syncope 10/03/2022 Assessment & Plan (10/03/2022 10:42 AM ENTRY LEVEL LAB TECHNICIAN): Getting echocardiogram Will hold furosemide for now, [...] 04/27/2021 Assessment & Plan (09/21/2024 9:34 AM ENTRY LEVEL LAB TECHNICIAN): BMI Follow-up includes: nutrition counseling, exercise counseling, and education provided. Assessment & Plan (11/13/2022 12:12 PM ENTRY LEVEL LAB TECHNICIAN): Healthy, low carbohydrate lifestyle and exercise for 150min/week recommended Assessment & Plan (08/17/2022 11:20 AM ENTRY LEVEL LAB TECHNICIAN): Healthy, low carbohydrate lifestyle and exercise for [...] changes. Assessment & Plan (08/24/2021 9:33 AM ENTRY LEVEL LAB TECHNICIAN): Continue small frequent meals. Exercise as tolerates. [...] 01/10/2021 Assessment & Plan (11/13/2022 12:12 PM ENTRY LEVEL LAB TECHNICIAN): BP stable in office, no changes today. [...] 11/15/2020 Assessment & Plan (11/15/2020 11:28 AM ENTRY LEVEL LAB TECHNICIAN): Reason ultrasound demonstrated hepatic steatosis consistent with fatty liver disease, non alcohol induced. Weight loss will be beneficial in helping this to resolve. Dyspepsia 07/27/2020 Assessment & Plan (08/11/2020 3:07 PM ENTRY LEVEL LAB TECHNICIAN): -Better with use of Reglan 10mg TID prior to meals. -Pt should avoid GERD triggering foods such as spicy or acidic/tomato based foods. Assessment & Plan (07/27/2020 4:25 PM ENTRY LEVEL LAB TECHNICIAN): Chronic symptoms of dyspepsia which may be related to delayed gastrointestinal motility. Trial of Reglan before meals. Follow-up in the office after the colonoscopy. Liver lesion 07/27/2020 Assessment & Plan (08/11/2020 3:06 PM ENTRY LEVEL LAB TECHNICIAN): -Pt cannot have MRI done due to rods in her back. Given that this was thought to possibly be area of focal steatosis, we will start with liver US. If this is inconclusive, we can do [address] -Last LFT's were normal. Assessment & Plan (07/27/2020 4:25 PM ENTRY LEVEL LAB TECHNICIAN): Recent CT scan showed 2.9 x 1.6 cm sub capsular liver lesion that will need further evaluation with MRI. History of colonic polyps 07/14/2020 Overview (07/14/2020): Added automatically from request for surgery [id number] Primary osteoarthritis of left knee 04/07/2020 Overview (04/07/2020): Added automatically from request for surgery [id number] Assessment & Plan (11/15/2020 11:20 AM ENTRY LEVEL LAB TECHNICIAN): Continue follow-up with Ortho. ambulatory regimen as much as tolerates Assessment & Plan (10/04/2020 9:07 AM ENTRY LEVEL LAB TECHNICIAN): Will have referral sent to the dietitian [...] 09/19/2018 Assessment & Plan (07/12/2024 6:54 PM ENTRY LEVEL LAB TECHNICIAN): Plan to repeat her serum a.m. cortisol levels Assessment & Plan (09/17/2023 2:53 PM ENTRY LEVEL LAB TECHNICIAN): Sub normal cosyntropin stim test response Plan to repeat cosyntropin stimulation test soon in office and further plans based on it Hypothyroidism Assessment & Plan (09/17/2023 2:53 PM ENTRY LEVEL LAB TECHNICIAN): Chronic, uncontrolled Repeat thyroid function test today and further plans based on it Assessment & Plan (11/13/2022 12:11 PM ENTRY LEVEL LAB TECHNICIAN): Was euthyroid 1-2 months ago when checked [...] appointment. Assessment & Plan (11/15/2020 11:28 AM ENTRY LEVEL LAB TECHNICIAN): Given the COVID -19 diagnosis it is [...] active. Assessment & Plan (10/04/2020 9:08 AM ENTRY LEVEL LAB TECHNICIAN): The patient seems motivated would be a [...] (07/14/2020): Added automatically from request for surgery [id number] Assessment & Plan (08/11/2020 3:09 PM ENTRY LEVEL LAB TECHNICIAN): -Colonoscopy did not show any signs of colitis. Assessment & Plan (07/27/2020 4:24 PM ENTRY LEVEL LAB TECHNICIAN): Schedule colonoscopy to better understand her disease and if active colitis that need to be addressed. Encounters Date Type Department Care Team Description 05/26/2025 ACO Clinical Pharmacist [address] [address] Katerina Lemus [facility] 05/21/2025 Telephone [facility] Minimally Invasive Surgery [address] [facility] Medical Office Building [address] [place] [address] Nidia Bowie [facility] 05/21/2025 ACO Clinical Pharmacist [address] [address] Katerina Lemus, [facility] 05/21/2025 ACO Outreach [address] [address] Viviana Laboy RN 05/21/2025 ACO Medication Access [address] [address] Lucia Christy CPhT 05/13/2025 Orders Only [facility] Orthopedics and Sports Medicine [address] [place] [address] [address] [place] [phone] Anjum Burnett PA 05/05/2025 9:[address] [facility] Medical [facility] Orthopedic and Sports Medicine [address] [place] [phone] Anjum Burnett PA S/P total knee arthroplasty, left (Primary Dx) 05/05/2025 Orders Only [facility] Orthopedic and Sports Medicine [address] [place] [phone] Cayden Chua MD S/P total knee arthroplasty, left (Primary Dx) 04/29/2025 Telephone [facility] Orthopedics and Sports Medicine [address] [place] [address] [address] [place] [phone] Cayden Chua MD 04/27/2025 ACO Clinical Pharmacist [address] [place] [address] Katerina Lemus, [facility] 04/23/2025 ACO Clinical Pharmacist [facility] [address] [place] [address] Katerina Lemus, [facility] 04/22/2025 [facility] Post Discharge Follow up phone call [facility] Surgery Care 1 [place] [address] Susie Pierre 04/20/2025 10:30 AM CDT - 04/20/2025 1:00 PM CDT Surgery [facility] Operating Room [address] [place] [address] Cayden Chua MD Left total knee arthroplasty--Depuy Attune, Velys, NMES, CPM, cooling unit, 1 liter beta rinse and aquamantys (overnight) 04/20/2025 10:16 AM CDT Anesthesia Event [facility] Operating Room 1 [place] [address] Chencho Lara MD Alexander, Jeffrey Michael, DO 04/20/2025 8:04 AM CDT - 04/21/2025 2:31 PM CDT Hospital Encounter [facility] Surgery Care 1 [place] [address] Cayden Chua MD S/P total knee arthroplasty, left (Primary Dx); Primary osteoarthritis of left knee Discharge Disposition: Discharge to home or self care 04/20/[address] [facility] Orthopedics and Sports Medicine [address] [facility] [address] [place] [phone] Anjum Burnett PA 04/15/[address] [facility] Primary Care at [address] [phone] Shanda Horan Phone Call 1 ([facility] dm eye exam) 04/07/2025 1:[address] [facility] Orthopedic and Sports Medicine [address] [place] [phone] Anjum Burnett PA Primary osteoarthritis of left knee (Primary Dx) 03/28/2025 Results Follow-Up [facility] Primary Care at [address] [phone] Fadi Plaza MD Clinical pathology report 03/24/2025 11:25 AM CDT Ancillary Procedure [facility] Imaging at [address] [phone] Infected dog bite of right index finger, initial encounter 03/24/2025 Results Follow-Up [facility] at [address] [phone] Bee Dai, MELIDA XR Finger 2Nd Index Right 03/23/2025 11:00 AM CDT Office Visit [facility] at [address] [phone] Bee Dai, MELIDA Infected dog bite of right index finger, initial encounter (Primary Dx) 03/23/2025 8:58 AM CDT - 03/23/2025 9:05 AM CDT Hospital Encounter [facility] Operating Room 1 [place] [address] Cayden Chua MD Discharge Disposition: Discharge to home or self care 03/23/2025 Telephone [facility] Orthopedics and Sports Medicine [address] [facility] [address] [place] [phone] Idalia Vyas PA 03/22/[address] [facility] Accountable Care Organization [address] [place] [address] Zahida Hogan 03/20/2025 9:40 AM CDT Lab [address] [phone] Leukocytosis, unspecified type; Thrombocytosis 03/19/[address] [facility] Medical [facility] Primary Care at [address] [phone] Fadi Plaza MD Leukocytosis, unspecified type (Primary Dx); Thrombocytosis 03/19/[address] [facility] Primary Care at [address] [phone] Fadi Plaza MD Medical Question/Miscellaneou s 03/15/2025 8:25 AM CDT - 03/15/2025 11:59 PM CDT Hospital Encounter [facility] Imaging Center 1 [place] [address] Pre-op testing Discharge Disposition: Discharge to home or self care 03/15/2025 8:22 AM CDT - 03/15/2025 11:59 PM CDT Hospital Encounter [facility] Cardiology 1 [place] [address] Pre-op testing Discharge Disposition: Discharge to home or self care 03/15/2025 8:20 AM CDT Lab [address] [address] Pre-op testing; Primary osteoarthritis of left knee 03/10/[address] [facility] Orthopedics and Sports Medicine [address] [facility] [address] [place] [phone] Cayden Chua MD Primary osteoarthritis of left [...] in lower back COLONOSCOPY 06/09/2018 - 07/09/2018 [place] KNEE ARTHROSCOPY W/ LATERAL RELEASE Left SPINE [...] Other Stroke Other Heart attack Paternal Grandfather [place] Heart disease Paternal Grandfather [place] Hypertension Paternal Grandfather [place] Stroke Paternal Grandfather [place] Cancer Paternal Grandmother [place] Heart attack Paternal Grandmother [place] Heart disease Paternal Grandmother [place] Hypertension Paternal Grandmother [place] Miscarriages / Stillbirths Paternal Grandmother [place] Stroke Paternal Grandmother [place] Relation Name Status Comments Father Margoturgeon Maternal Grandmother Brii Smiley Mother Brenda Gonsalez Mother's Sister Other Paternal Grandfather [place] Paternal Grandmother [place] Social History Tobacco Use Types Packs/Day Years Used Date Smoking Tobacco: Former Cigarettes 1 17.6 1 - 02/03/2025 Smokeless Tobacco: Never Tobacco Cessation:Counseling Given: Not Answered Alcohol Use Standard Drinks/Week Comments Not Currently 0 (1 standard drink = 0.6 oz pur e alcohol) [facility] Utilities Answer Date Recorded In the past 12 months has [employer], gas, oil, or water [employer] threatened to shut off services in your [...] How often do you attend chur or tenriism services? Never 07/26/2023 Do you belong to any clubs o r organizations such as gnosticism groups, unions, fraternal or athletic groups, or [...] place to sleep or slept in a nursing home (including now)? No 07/26/2023 PHQ-9 Answer Date [...] Completed 09/21/2024 Medical Devices Implanted Type Area Microsoft Bi Developer Device Identifier Shelf Expiration Date Model / Serial / Lot DIY Angio-Seal Vip 6fr Closere Device [id number] - [id number] Implanted:Qty: 1 on 10/10/2022 by Phil Dodd MD at [facility] DIY 06/08/2023 [id number] / / [id number] [employer] Attune Cruciate Retain Cementless Knee Left 5 Narrow Component [id number] - [id number] Implanted:Qty: 1 on 04/20/2025 by Cayden Chua MD at [facility] Left: Knee [employer] [id number] 01/06/2035 [id number] / / [id number] [employer] Insert Tibial Knee Fixed Lm Posterior Stabilized Attune 5mm Size 5 Polyethylene [id number] - [id number] Implanted:Qty: 1 on 04/20/2025 by Cayden Chua MD at [facility] Left: Knee [employer] [id number] 01/06/2033 [id number] / / [id number] [employer] Attune Fb Tib Base Sz 4 Por [id number] - [id number] Implanted:Qty: 1 on 04/20/2025 by Cayden Chua MD at [facility] Left: Knee [employer] [id number] 03/08/2034 [id number] / / [id number] Procedures Procedure Name Priority Date/Time Associated Diagnosis [...] HEPATITIS C ANTIBODY Routine 09/21/2024 9:50 AM ENTRY LEVEL LAB TECHNICIAN Encounter for hepatitis C screening test for low risk patient HEMOGLOBIN A1C Routine 09/21/2024 9:50 AM ENTRY LEVEL LAB TECHNICIAN Type 2 diabetes mellitus with diabetic neuropathy, without long-term current use of insulin (HCC) LIPID PANEL Routine 09/21/2024 9:50 AM ENTRY LEVEL LAB TECHNICIAN Primary hypertension ALBUMIN CREATININE RATIO, URINE Routine 09/21/2024 9:50 AM ENTRY LEVEL LAB TECHNICIAN Type 2 diabetes mellitus with diabetic neuropathy, without long-term current use of insulin (HCC) PAP AND HPV, REFLEX TO HPV GENOTYPES Routine 02/20/2024 2:08 PM CDT SCREENING MAMMOGRAM BILATERAL W RUBA Schedule Routine, Read Routine (OP Routine) 02/13/2024 1:22 PM CDT Breast cancer screening by mammogram COLONOSCOPY 07/29/2020 9:54 AM ENTRY LEVEL LAB TECHNICIAN from Last 3 Months or Most Recently [...] ORDERABLES - DEVICE Final Result [facility]LLAN[facility] ([place]) 1 [facility] [place] [address] * POCT glucose (04/21/2025 7:37 AM CDT) Glucose, POC 109 70 - 199 mg/dL Blood 04/21/2025 7:37 AM CDT 04/21/2025 7:37 AM CDT Cayden Chua MD LAB POCT ORDERABLES - DEVICE Final Result Performing Organization Address City/[facility]/ZIP Co de Phone Number [facility] ([place]) [address] [facility] [place] [address] * POCT glucose (04/21/2025 2:56 AM CDT) Glucose, POC 132 70 - 199 mg/dL Blood 04/21/2025 2:56 AM CDT 04/21/2025 2:56 AM CDT Cayden Chua MD LAB POCT ORDERABLES - DEVICE Final Result Performing Organization Address City/[facility] Co de Phone Number [facility] CASTELLAN[facility] ([place]) 1 [facility] [place] [address] * POCT glucose (04/20/2025 7:24 PM CDT) Glucose, POC 197 70 - 199 mg/dL Blood 04/20/2025 7:24 PM CDT 04/20/2025 7:24 PM CDT Cayden Chua MD LAB POCT ORDERABLES - DEVICE Final Result Performing Organization Address City/[facility]/ZIP Co de Phone Number [facility] CASTELLAN[facility] ([place]) 1 [place] [address] * (ABNORMAL) POCT glucose (04/20/2025 4:38 PM CDT) Glucose, POC 204(H) 70 - 199 mg/dL Blood 04/20/2025 4:38 PM CDT 04/20/2025 4:38 PM CDT Cayden Chua MD LAB POCT ORDERABLES - DEVICE Final Result Performing Organization Address City/[facility] Co de Phone Number [facility]LLAN[facility] ([place]) [address] [place] [address] * POCT glucose (04/20/2025 2:17 PM CDT) Glucose, POC 119 70 - 199 mg/dL Blood 04/20/2025 2:17 PM CDT 04/20/2025 2:17 PM CDT Cayden Chua MD LAB POCT ORDERABLES - DEVICE Final Result Performing Organization Address City/[facility] Co de Phone Number [facility] CA[facility]LL[facility] ([place]) [address] [place] [address] * Surgical pathology (04/20/2025 1:31 PM CDT) Tissue (Bone Fragment(s),) 04/20/2025 9:27 AM CDT Narrative PATHOLOGY [facility] ([place]) - 04/22/2025 11:37 AM CDT EPIC results best viewed via link to PDF [facility] Department of Pathology 1 [place] [address] Note to Patients: This report may contain [...] Final Report Patient Name: GLORIA LANGLEY Address: [address] [place] [address] Gender: F : 1975 (Age: 49) Service: Surgery Location: [facility] Hospital #: [id number] Patient Type: [facility] OP in bed Taken: 04/20/2025 Received: 04/20/2025 [...] determined by the Surgical Pathology Department at [facility] as part of an ongoing customer quality specialist program and in compliance with federally mandated [...] characteristics determined by the Surgical Pathology Department [facility]. It has not been cleared or approved by the U. S. Food and Drug Administration. Note for decalcified specimens: This assay has not been validated on decalcified tissues. Results should be interpreted with caution given the possibility of false negativity on decalcified specimens Cayden Chua MD LAB PATHOLOGY ORDERABLES Fin al Result Performing Organization Address City/State/[facility] Co de Phone Number PATHOLOGY [address] [address] * X-ray knee left 1 [...] signed by Lev DUMONT: TIM Report ID: [id number] [place] Location: [id number] Procedure Note Lev Armando MD - 04/20/2025 [...] Lev Armando M.D. MJ: TIM Report ID: [id number] [place] Location: [id number] Cayden Chua MD IMG XR PROCEDURES Final Resu lt * POCT glucose (04/20/2025 12:54 PM CDT) Glucose, POC 119 70 - 199 mg/dL Blood 04/20/2025 12:5 4 PM CDT 04/20/2025 12:54 PM CDT Cayden Chua MD LAB POCT ORDERABLES - DEVICE Final Result NAIN EMANUEL ([place]) [address] [facility] Department [place] [address] * Spinal Block (04/20/2025 11:42 AM CDT) Narrative Yadi Queen CRNA - 04/20/2025 11:42 AM CDT Yadi Queen CRNA 04/20/2025 11:42 AM Spinal Block Patient location: OR Reason for block: primary anesthetic Staff: Supervising provider: Chencho Lara MD Placed by: VENTILATED RIB FITTER:Yadi Queen CRNA Procedure prep: Preprocedure checklist: patient [...] ORDERABLES Final R esult Performing Organization Address [facility]/ZIP Co de Phone Number [facility] CASTELLANOS ([place]) 1 [facility] [place] [address] * Protime-INR (04/20/2025 9:37 AM CDT) PT 11.4 10.2 - 13.5 sec [facility] 1.01 0.90 - 1.20 [facility] ([place]) Comment: Interpretive data Oral anticoagulant therapeutic ranges: Venous thromboembolism prophylaxis or treatment: 2.0-3.0 CARDIOLOGY Standard range: 2.0-3.0 High-intensity range: 2.5-3.5 Refer to indication-specific guidelines for appropriate target ranges for prosthetic heart valve replacement. Current interpretive data was last revised on 2019. Blood 04/20/2025 9:37 AM CDT 04/20/2025 9:41 AM CDT us Cayden Chua MD LAB BLOOD ORDERABLES Final R esult Performing Organization Address [facility] Co de Phone Number [facility] CASTELLANOS ([place]) 1 [place] [address] * Potassium, whole blood (04/20/2025 8:50 AM [...] ORDERABLES F inal Result Performing Organization Address [facility] Co de Phone Number [facility] CASTELLANOS ([place]) 1 [facility] [place] [address] * Erythrocyte sedimentation rate (04/20/2025 8:50 AM CDT) Erythrocyte sedimentation rate 10 1 - 30 mm/hr Blood 04/20/2025 8:50 AM CDT 04/20/2025 8:53 AM CDT Cayden Chua MD LAB BLOOD ORDERABLES Final R esult Performing Organization Address [facility] Co de Phone Number [facility]LL[facility] ([place]) 1 [facility] [place] [address] * (ABNORMAL) CRP (acute phase) (04/20/2025 8:50 AM CDT) Pathologist [facility] CRP 23.6(H) <=10.0 mg/L NAIN David ([place]) Blood 04/20/2025 8:50 AM CDT 04/20/2025 8:53 AM CDT us Cayden Chua MD LAB BLOOD ORDERABLES Final R esult Performing Organization Address [facility] Co de Phone Number [facility] CASTELLANOS ([place]) [address] [place] [address] [place] [address] * POCT glucose (04/20/2025 8:27 AM CDT) Glucose, POC 118 70 - 199 mg/dL Blood 04/20/2025 8:27 AM CDT 04/20/2025 8:27 AM CDT Cayden Chua MD LAB POCT ORDERABLES - DEVICE Final Result Performing Organization Address [facility] Co de Phone Number [facility] CASTELLANOS ([place]) 1 [facility] [place] [address] * XR Finger 2Nd Index Right (03/24/2025 [...] Mushtaq Bradshaw D.O. PS T: Report ID: [id number] [place] Location: [id number] Procedure Note Mushtaq Bradshaw, DO - 03/24/2025 [...] Mushtaq Bradshaw D.O. PS T: Report ID: [id number] [place] Location: [id number] Bee Dai NP IMG XR PROCEDURES Final Result [...] Alternatives discussed: Observation, referral and alternative treatment [place] protocol: Procedure explained and questions answered to [...] LAB BLOOD ORDERABLES Final Result [facility] [place] [address] [facility] Department of Laboratories [place], [place] [id number] * Clinical pathology report (03/20/2025 8:41 AM CDT) Miscellaneous 03/20/2025 8:4 1 AM CDT 03/22/2025 8:41 AM CDT Narrative 03/22/2025 10:02 AM CDT [facility] results best viewed via link to PDF [facility] Department of Pathology [address] [place] [id number] Final Report Note to Patients: This report [...] the details. Patient Name: GLORIA LANGLEY Address: [address] [place] [address] Gender: F : 1975 (Age: 49) Service: Location: N : [id number] [facility] #: [id number] Patient Type: [facility] EP ANCILLARY Taken: 03/20/2025 [...] determined by the Surgical Pathology Department at [facility] as part of an ongoing customer quality specialist program and in compliance with federally mandated [...] characteristics determined by the Surgical Pathology Department [facility]. It has not been cleared or approved by the U. S. Food and Drug Administration. REPORT IMAGES AND SCANNED DOCUMENTS, IF INCLUDED, ONLY VIEWABLE IN PDF VERSION OF REPORTe o Fadi Plaza MD LAB PATHOLOGY ORDERABLES Fi nal Result [...] Yasmani Jalloh M.D. KH: ANANTH Report ID: [id number] [place] Location: [id number] Procedure Note Yasmani Jalloh MD - 03/19/2025 [...] Yasmani Jalloh M.D. KH: ANANTH Report ID: [id number] [place] Location: [id number] Cayden Chua MD IMG XR PROCEDURES Final Resu lt * ECG 12 lead (03/15/2025 8:42 AM CDT) 03/15/2025 8:41 AM CDT [facility] - 03/15/2025 9:01 AM CDT Vent Rate: 72 bpm RR Interval: 830 msec CA Interval: 178 msec QRS Duration: 89 msec QT Interval: 388 msec QTC Interval: 412 msec P-R-T Holmes: 1 - -9 - 47 degrees IMPRESSION: SINUS RHYTHM MODERATE VOLTAGE CRITERIA FOR LVH, CONSIDER NORMAL VARIANT [MEETS CRITERIA IN ONE OF: R(aVL), S(V1), R(V5), R(V5/V6)+S(V1)] NONSPECIFIC T-WAVE ABNORMALITY BORDERLINE ECG Compared to prior EKG, QT interval has decreased Electronically Signed By: Phil Dodd MD Cayden Chua MD ECG ORDERABLES Final Result [facility] * eGFR (03/15/2025 8:28 AM CDT) eGFR [...] BLOOD ORDERABLES Final R esult NAIN CASTELLANOS ([place]) 1 [facility] Department [place] [address] * (ABNORMAL) Differential, auto (03/15/2025 8:28 AM [...] BLOOD ORDERABLES Final R esult NAIN [facility]STELL[facility] ([place]) 1 [facility] Department [place] [address] * (ABNORMAL) Urinalysis reflex to microscopic and [...] tendency for uric acid stone formation. Source: [facility] [employer] Current Interpretive Data was last revised on [...] RDERABLES Final Result [facility] ([place]) 1 [facility] Department of Laboratories [place], [place] [id number] * (ABNORMAL) CBC with auto differential (03/15/2025 8:28 AM CDT) WBC 13.01(H) 3.80 - 9.90 K/cumm Hgb 14.0 11.9 - 15.5 g/dL [facility] ([place]) Hct 42.9 35.6 - 45.5 % [facility] ([place]) Plt 428(H) 150 - 400 K/cumm [facility] ([place]) MPV 9.6 9.1 - 12.3 fL [facility] ([place]) RBC 5.00 3.90 - 5.20 M/cumm [facility] ([place]) MCV 85.8 81.3 - 96.4 fL [facility] ([place]) MCH 28.0 27.1 - 33.3 pg [facility] ([place]) MCHC 32.6 32.3 - 35.7 g/dL [facility] ([place]) RDW CV 14.4 11.1 - 14.9 % [facility] ([place]) RDW SD 45.1 35.7 - 48.1 fL [facility] ([place]) NRBC abs 0.00 0.00 - 0.01 K/cumm [facility] ([place]) Blood 03/15/2025 8:28 AM CDT 03/15/2025 8:44 AM CDT Cayden Chua MD LAB BLOOD ORDERABLES Final R esult Performing Organization Address City/[facility] Co de Phone Number NAIN [facility] ([place]) 1 [facility] Department [place] [address] * (ABNORMAL) Urinalysis, microscopic only (03/15/2025 8:28 AM CDT) WBC, ur 0-5 0 - 5 /HPF RBC, ur 6-10(A) 0 - 2 /HPF [facility] ([place]) Epithelial cells, squamous, ur 1-5 0 - 5 /HPF [facility] ([place]) Mucous, ur Present(A) [facility] ([place]) Culture Reflex Comment Reflex conditions for urine culture (WBC >10) not met. NAIN [facility] ([place]) Urine, clean voided 03/15/2025 8:28 AM CDT 03/15/2025 9:07 AM CDT Cayden Chua MD LAB URINE ORDERABLES Final R esult Performing Organization Address City/State/[facility] Co de Phone Number NAIN CASTELLANOS ([place]) 1 [facility] [place] [address] * aPTT (03/15/2025 8:28 AM CDT) aPTT 30 28 - 38 sec [facility]STELLAN[facility] ([place]) Comment: Interpretive Data Heparin therapeutic range: 66.0 - 100.0 seconds. Range based on correlation with therapeutic heparin activity range of 0.3 - 0.7 Units/mL. Current interpretive data was last revised on 2023. Blood 03/15/2025 8:28 AM CDT 03/15/2025 8:44 AM CDT Cayden Chua MD LAB BLOOD ORDERABLES Final R esult Performing Organization Address [facility] de Phone Number NAIN CASTELLANOS ([place]) 1 [facility] [place] [address] * Protime-INR (03/15/2025 8:28 AM CDT) PT 10.3 9.7 - 13.0 sec [facility] ([place]) INR 0.95 0.90 - 1.20 [facility] ([place]) Comment: Interpretive data Oral anticoagulant therapeutic ranges: Venous thromboembolism prophylaxis or treatment: 2.0-3.0 CARDIOLOGY Standard range: 2.0-3.0 High-intensity range: 2.5-3.5 Refer to indication-specific guidelines for appropriate target ranges for prosthetic heart valve replacement. Current interpretive data was last revised on 2019. Blood 03/15/2025 8:28 AM CDT 03/15/2025 8:44 AM CDT Narrative [facility] CASTELLANOS ([place]) - 03/15/2025 9:13 AM CDT Repeat AM day of surgery if on coumadin Cayden Chua MD LAB BLOOD ORDERABLES Final R esult Performing Organization Address [facility] Co de Phone Number NAIN CASTELLANOS ([place]) 1 [facility] [place] [address] * Comprehensive metabolic panel (03/15/2025 8:28 AM [...] ORDERABLES Final R esult Performing Organization Address City/[facility] Co de Phone Number NAIN [facility] ([place]) 1 [facility] Department [place] [address] * Hepatitis C antibody Blood (09/21/2024 9:50 AM ENTRY LEVEL LAB TECHNICIAN) Hep C Ab Nonreactive Nonreactive Comment: Interpretive [...] revised on 2019. Blood 09/21/2024 9:50 AM ENTRY LEVEL LAB TECHNICIAN 09/21/2024 6:51 PM ENTRY LEVEL LAB TECHNICIAN Result [facility] Fadi Plaza MD LAB MICROBIOLOGY - GENERAL ORDERABLES Final Result Performing Organization Address [facility] de Phone Number NAIN [address] [place] [address] * Albumin Creatinine Ratio, Urine (09/21/2024 9:50 AM ENTRY LEVEL LAB TECHNICIAN) Albumin Ur 19.4 mg/L Comment: Interpretive Data No reference range established. Current interpretive data was last revised 2019. Creatinine Ur 193.6 mg/dL NAIN Comment: Interpretive Data No reference range established. Current interpretive data was last revised 2019. Albumin Creatinine Ratio, Ur 10 1 - 29 mg/g NAIN Urine 09/21/2024 9:50 AM ENTRY LEVEL LAB TECHNICIAN 09/21/2024 6:51 PM ENTRY LEVEL LAB TECHNICIAN Fadi Plaza MD LAB URINE ORDERABLES Final Result Performing Organization Address [facility] Co de Phone Number NAIN [phone] [address] [place] [place] [address] * (ABNORMAL) Hemoglobin A1c (09/21/2024 9:50 AM ENTRY LEVEL LAB TECHNICIAN) Hgb A1C 6.0(H) 4.0 - 5.6 % Estimated Average Glucose 126 mg/dL NAIN ARGUELLES Comment: The ADA recommends reporting an estimated Average Glucose (eAG) with all Hemoglobin A1c results using the equation derived from a study of 507 normal and diabetic adults. Minority populations were underrepresented and children were not included. (Diabetes Care 31:4519-8599, 2008). The eAG is not equivalent to a fasting glucose. Blood 09/21/2024 9:50 AM ENTRY LEVEL LAB TECHNICIAN 09/21/2024 6:51 PM ENTRY LEVEL LAB TECHNICIAN us Fadi Plaza MD LAB BLOOD ORDERABLES Final Result NAIN [place]LL[facility] [id number] [address] Department [place] [address] * Lipid panel (09/21/2024 9:50 AM ENTRY LEVEL LAB TECHNICIAN) Cholesterol 127 30 - 199 mg/dL Comment: [...] 2 NAIN ARGUELLES Blood 09/21/2024 9:50 AM ENTRY LEVEL LAB TECHNICIAN 09/21/2024 6:51 PM ENTRY LEVEL LAB TECHNICIAN Fadi Plaza MD LAB BLOOD ORDERABLES Final Result NAIN [place] [address] Department [place] [address] * Pap and HPV, reflex to HPV Genotypes (02/20/2024 2:08 PM CDT) Clinical indication Comment [facility] - 01 Comment:NEGATIVE FOR INTRAEP ITHELIAL LESION OR MALIGNANCY. Specimen adequacy: Comment [facility] - 01 Comment:Satisfactory for kristy luation. No endocervical component is identified. Clinician provided ICD10 Comment [facility] - 01 Comment:Z01.419 Performed by Comment [facility] - 01 Comment:Quentin Bailey, [facility] otechnologist (ASCP) . . [facility] - 01 [...] - 02/25/2024 8:16 AM CDT Performed at: [address] [place], [place] [id number] Hims Coder: Sara Vigil MD, Phone: [phone] Performed at: - [facility] [address] [id number] Hims Coder: Sara Vigil MD, Phone: [phone] Specimen Comment: Source.............Cervix;Endocervix Specimen Comment: No. of [...] for her next mammogram. Electronically signed by: Lucero Buck M.D. Narrative 02/19/2024 12:54 PM CDT [...] Final Result * COLONOSCOPY (07/29/2020 9:54 AM ENTRY LEVEL LAB TECHNICIAN) Anatomical Region Laterality Modality Other Narrative Procedure Note Skyler aBbb MD - 07/29/2020 9:54 AM CST [facility] Patient Name: Gloria Langley Procedure Date: 07/29/2020 9:54 AM Date of : 1975 Admit Type: Outpatient Age: 45 Gender: Female Attending MD: Skyler Babb M.D. Room: [facility] ENDOSCOPY ROOM 1 Note Status: Finalized Patient [...] passed under direct vision.The Pediatric Colonoscope [id number] was introduced through the anus and advanced [...] 9:54 AM Procedure Code(s): --- Professional --- 70433, Colonoscopy, flexible; with biopsy, single or multiple Diagnosis Code(s): --- Professional --- K64.8, Other hemorrhoids D12.0, Benign neoplasm of cecum D12.4, Benign neoplasm of descending colon K52.9, Noninfective gastroenteritis and colitis, unspecified CPT copyright 2017 [employer]. All rights reserved. The codes documented in this report are preliminary and upon stock letterer reviewmay be revised to meet current compliance requirements. Recognized by the [employer] for promoting quality in endoscopy Skyler Babb MD ENDOSCOPY PROCEDURES Final Result from Last 3 Months or Most Recently Relevant to Health Maintenance Insurance [facility] Address: [address] [address] [facility] Address: [facility] [address] [place] [address] Advance Directives For more information, please contact: [phone] * Full Code (Latest Code Status on [...] 11:42 AM 02/28/2021 5:46 PM Care Teams Smoke Eater Relationship Specialty Start Date End Date Fadi Plaza MD [address] [place] [id number] PCP - General Family Medicine 12/19/21 Benjy Hernandez MD [address] [place] [id number] Referring Physician Hematology and Oncology 06/04/22 Earl Guerra OT Occupational Therapist Occupational Therapy 03/10/25 Cayden Chua MD [address] [place] [address] [address]YVA [address] [address] Surgeon Orthopedic Surgery 04/20/25
== END 2025-05-27 11:40 | disposition home or self-care (01) ==
PROVIDERS: Emergency Provider Emergency Medicine; PCP Family Medicine
DX: J02.0 Streptococcal pharyngitis (principal); E03.9 Hypothyroidism, unspecified; I10 Essential (primary) hypertension; F17.200 Nicotine dependence, unspecified, uncomplicated; Z20.822 Contact with and (suspected) exposure to COVID-19
CPT/HCPCS: 87637; 87651; 99283